=== PATIENT | female | born 1975 | race Hispanic/Latino ===

== ENCOUNTER 2017-07-06 20:05 | Emergency (ER) | payer MEDICAID, OTHER ==
[2017-07-06 21:08] VITALS: BP 142/109
[2017-07-06] MEDS ORDERED: TYLENOL PO ONE (21:13)
[2017-07-06 21:29] LABS: Basophils % (Auto) 1.2 % (0.0-1.8); Hematocrit 38.8 % (30.3-42.9); Hemoglobin 12.9 gm/dl (10.1-14.3); Mean Corpuscular HGB Conc 33 % (30-34); Mean Corpuscular Hemoglobin 29 pg (28-32); Mean Corpuscular Volume 87 fl (79-97); Platelet Count 200 K/mm3 (140-440); Red Blood Count 4.48 M/mm3 (3.65-5.03); White Blood Count 4.6 K/mm3 (4.5-11.0)
[2017-07-06 21:52] LABS: Alanine Aminotransferase 18 units/L (7-56); Albumin 3.9 g/dL (3.9-5); Albumin/Globulin Ratio 1.1 %; Alkaline Phosphatase 63 units/L (35-129); Anion Gap 20 mmol/L; BUN/Creatinine Ratio 14.28; Blood Urea Nitrogen 10 mg/dL (7-17); Calcium 8.5 mg/dL (8.4-10.2); Carbon Dioxide 21 mmol/L (22-30); Chloride 101.6 mmol/L (98-107); Glucose 75 mg/dL (65-100); Potassium 3.5 mmol/L (3.6-5.0); Sodium 139 mmol/L (137-145); Total Protein 7.6 g/dL (6.3-8.2)
--- NOTE | 2017-07-06 22:49 | Ultrasound Report ---
FINAL REPORT EXAM: US PELVIC COMPLETE HISTORY: vag pain and pelvic pain more so in the right lower quadrant. . LMP 06/05/2017 TECHNIQUE: Ultrasound of the pelvis using transabdominal and transvaginal imaging PRIORS: None. FINDINGS: Uterus: Uterus is normal in size, retroflexed in position, and normal and homogeneous in echogenicity. The uterus measures 8.5 x 4.5 x 5.2 cm in size. There is a suggestion of a possible fibroid within the posterior right side of the fundus measuring 2.3 x 2.8 x 2.6 cm. Endometrial stripe: Normal and uniform in thickness measuring 11.7 mm. Ovaries: Both ovaries appear normal in size and echogenicity with normal blood flow bilaterally. The right ovary measures 2.0 x 1.4 x 1.8 cm and the left ovary measures 2.3 x 1.7 x 2.2 cm in size. Arterial and venous blood flow is noted bilaterally. Other: There is no evidence for solid adnexal mass or free fluid in the cul-de-sac seen. IMPRESSION: Suspected fibroid within the posterior right side of the fundus. Otherwise, negative exam.
[2017-07-07 00:29] LABS: Bacteria,Urine 2+ /HPF (Negative); Bilirubin,Urine NEG (Negative); Blood,Urine SM (Negative); Granular Casts,Urine 2 /LPF; Ketones,Urine NEG (Negative); Leukocyte Esterase,Urine MOD (Negative); Mucus,Urine 1+ /HPF; Nitrite,Urine NEG (Negative)
== END 2017-07-07 00:45 | disposition left against medical advice (07) ==
LOC: ED 20:05
DX: R50.9 Fever, unspecified (principal); Z53.21 Procedure and treatment not carried out due to patient leaving prior to being seen by health care provider
CPT/HCPCS: 36415; 76830; 76856; 80053; 81001; 84703; 85025

== ENCOUNTER 2019-07-07 17:30 | Emergency (ER) | payer SELFPAY ==
[2019-07-07 17:48] VITALS: BP 132/92
--- NOTE | 2019-07-07 20:38 | Emergency Department Report ---
ED Rash HPI - HPI Chief Complaint: Skin Rash Stated Complaint: RASH/ARM Time Seen by Provider: 07/07/19 20:32 Duration: 3 Days Location: Upper Extremities Suspected Cause: Unknown Rash Symptoms: Yes Itching, No Facial Swelling, No Tongue/Oral Swelling, No Breathing Difficulties, No Choking Sensation, No Wheezing/Dyspnea, No Peeling, No Blistering, No Lightheaded, No Malaise, No Myalgias Severity: moderate Other History: rash to left fore hand webbing of finger and wrist x 3 days unkown contact consistent with scabies. ED Review of Systems ROS: Stated complaint: RASH/ARM Other details as noted in HPI Constitutional: denies: chills, fever Eyes: denies: eye pain, eye discharge, vision change ENT: denies: ear pain, throat pain Respiratory: denies: cough, shortness of breath, wheezing Cardiovascular: denies: chest pain, palpitations Endocrine: no symptoms reported Gastrointestinal: denies: abdominal pain, nausea, diarrhea Genitourinary: denies: urgency, dysuria, discharge Musculoskeletal: denies: back pain, joint swelling, arthralgia Skin: denies: rash, lesions Neurological: denies: headache, weakness, paresthesias Psychiatric: denies: anxiety, depression Hematological/Lymphatic: denies: easy bleeding, easy bruising ED Past Medical Hx - Past Medical History Hx Hypertension: Yes Additional medical history: CHRONS - Surgical History Additional Surgical History: LEFT KNEE - Social History Smoking Status: Never Smoker Substance Use Type: None - Medications Home Medications: Home Medications Medication Instructions Recorded Confirmed Last Taken Type Dextroamphetamine/Amphetamine 30 mg PO QDAY 07/24/16 07/24/16 Unknown History [Adderall XR 30 mg] Ibuprofen [Motrin] 800 mg PO Q8HR PRN #15 tablet 07/24/16 Unknown Rx Trazodone HCl [Oleptro ER] 150 mg PO QHS 07/24/16 07/24/16 Unknown History clonazePAM [ Klonopin] 0.5 mg PO BID PRN 07/24/16 07/24/16 Unknown History Permethrin 5% [Acticin 5% CREAM] 1 applicatio TP ONCE #1 tube 07/07/19 Unknown Rx Triamcinolone Aceton 0.1% (Nf) 1 applic TP BID #1 tube 07/07/19 Unknown Rx [Kenalog (NF)] diphenhydrAMINE [Benadryl CAP] 25 mg PO Q6HR PRN #30 capsule 07/07/19 Unknown Rx Rash Exam - Exam General: Vital signs noted. No distress. Alert and acting appropriately. HEENT: No Periorbital Edema, No Conjuctival Injection, No Chemosis, No Perioral Edema, No Tongue Edema, No Uvular Edema, No Compromised Airway, No Drooling Lungs: Yes Good Air Exchange (Normal Breath Sounds), No Wheezes, No Ronchi, No Stridor, No Cough, No Labored Respirations, No Retractions, No Use of Accessory Muscles, No Other Abnormal Lung Sounds Heart: Yes Regular, No Murmur Skin: Yes Urticarial Rash, Yes Erythema, Yes Encrustations, No Maculopapular Rash, No Morbilliform rash, No Bulla(e), No Excoriations, No Weeping, No Tenderness, No Edema Other: Positive: Abdomen Normal, Neurologic Normal, Musculoskeletal Normal ED Course Vital Signs 07/07/19 17:47 Temperature 98.4 F Pulse Rate 95 H Respiratory 18 Rate Blood Pressure 132/92 O2 Sat by Pulse 100 Oximetry ED Medical Decision Making - Medical Decision Making this is likely scabies plan permethrin , triamcinolone, benadryl, pt given skin , laundry, matteress, and linen care instructions verbalized understanding of same. Critical care attestation.: If time is entered above; I have spent that time in minutes in the direct care of this critically ill patient, excluding procedure time. ED Disposition Clinical Impression: Scabies exposure Disposition: TO HOME OR SELFCARE Is pt being admited?: No Does the pt Need Aspirin: No Condition: Stable Instructions: Scabies (ED) Prescriptions: Permethrin 5% [Acticin 5% CREAM] 1 applicatio TP ONCE #1 tube diphenhydrAMINE [Benadryl CAP] 25 mg PO Q6HR PRN #30 capsule PRN Reason: Itching Triamcinolone Aceton 0.1% (Nf) [Kenalog (NF)] 1 applic TP BID #1 tube Referrals: NEELA YOO MD [Primary Care Provider] - 3-5 Days Forms: Work/School Release Form(ED) Time of Disposition: 20:43
== END 2019-07-07 20:41 | disposition home or self-care (01) ==
LOC: ED 17:30
DX: Z20.89 Contact with and (suspected) exposure to other communicable diseases (principal); I10 Essential (primary) hypertension; Z79.899 Other long term (current) drug therapy

== ENCOUNTER 2020-02-08 19:17 | Emergency (ER) | payer SELFPAY ==
--- NOTE | 2020-02-08 19:36 | Emergency Department Report ---
Blank Doc - Documentation Documentation: 44-year-old female that presents with dizziness and headache. This initial assessment/diagnostic orders/clinical plan/treatment(s) is/are subject to change based on patient's health status, clinical progression and re- assessment by fellow clinical providers in the ED. Further treatment and workup at subsequent clinical providers discretion. Patient/guardians urged not to elope from the ED as their condition may be serious if not clinically assessed and managed. Initial orders include: 1- Patient sent to [facility] for further evaluation and treatment 2- labs 3- UA
--- NOTE | 2020-02-08 21:01 | Emergency Department Report ---
Chief Complaint: Headache Stated Complaint: DIZZY/HEADACHE Time Seen by Provider: 02/08/20 19:36 - HPI History of Present Illness: CC:" think I have stress and sinus" Mrs. Resendiz is a 44 yo female with hx of TIA who preseents facial headache and sinus congestion for 4 days. Mild in severity. No cough. no blurry vision no trouble with speech. I performed a brief examination. Patient appears well. Patient appears comfortable. No red flags for headache such as sudden onset fever neurological symptoms. I recommended [id number] decongestants. Medical screening exam performed and completed. No evidence of acute emergent condition. - Exam Vital Signs: Vital Signs 02/08/20 19:34 Temperature 97.6 F Pulse Rate 93 H Respiratory 18 Rate Blood Pressure 156/107 O2 Sat by Pulse 99 Oximetry MSE screening note: Focused history and physical exam performed. Due to findings the following was ordered: ED Disposition for MSE Clinical Impression: Sinus headache Disposition: MED SCREENING EXAM-LEFT Condition: Stable Referrals: PILY DOSHI MD [Staff Physician] - 3-5 Days
[2020-02-08 22:24] VITALS: BP 147/98
== END 2020-02-08 21:15 | disposition left against medical advice (07) ==
LOC: ED 19:17
DX: R51 Headache (principal)
CPT/HCPCS: 99282

== ENCOUNTER 2021-03-26 00:53 | Emergency (ER) | payer SELFPAY ==
[2021-03-26 01:08] VITALS: BP 192/117
[2021-03-26 02:01] LABS: Basophils # (Auto) 0.1 K/mm3 (0.0-0.1); Basophils % (Auto) 1.3 % (0.0-1.8); Eosinophils # (Auto) 0.1 K/mm3 (0.0-0.4); Hematocrit 38.3 % (30.3-42.9); Hemoglobin 12.8 gm/dl (10.1-14.3); Lymphocytes # (Auto) 2.4 K/mm3 (1.2-5.4); Lymphocytes % (Auto) 33.3 % (13.4-35.0); Mean Corpuscular HGB Conc 33 % (30-34); Mean Corpuscular Volume 87 fl (79-97); Monocytes # (Auto) 0.5 K/mm3 (0.0-0.8); Monocytes % (Auto) 6.5 % (0.0-7.3); Platelet Count 319 K/mm3 (140-440); Red Cell Distribution Width 14.1 % (13.2-15.2)
[2021-03-26 02:15] LABS: Alanine Aminotransferase 19 units/L (7-56); Albumin 4.2 g/dL (3.9-5); Blood Urea Nitrogen 8 mg/dL (7-17); Calcium 8.9 mg/dL (8.4-10.2); Hemolysis Index 19
[2021-03-26 02:16] LABS: BUN/Creatinine Ratio 16
== END 2021-03-26 05:00 | disposition left against medical advice (07) ==
LOC: ED 00:53
DX: R42 Dizziness and giddiness (principal); Z53.21 Procedure and treatment not carried out due to patient leaving prior to being seen by health care provider
CPT/HCPCS: 36415; 80053; 85025

== ENCOUNTER 2021-10-07 13:56 | Observation (INO) | payer SELFPAY ==
[2021-10-07] MEDS ORDERED: SODIUM CHLORIDE 0.9% 1000 ML 1,000 ML IV ONE ×2 (14:32→17:27)
--- NOTE | 2021-10-07 14:36 | Emergency Department Report ---
<NAHID BRIZUELA - Last Filed: 10/07/21 22:18> ED Chest Pain HPI - General Chief Complaint: Chest Pain Stated Complaint: TOOK SLEEPING PILLS Time Seen by Provider: 10/07/21 14:25 - Related Data Home Medications Medication Instructions Recorded Confirmed Last Taken Dextroamphetamine/Amphetamine 30 mg PO QDAY 07/24/16 10/07/21 Unknown [Adderall XR 30 mg] Trazodone HCl [Oleptro ER] 150 mg PO QHS 07/24/16 10/08/21 10/06/21 20:00 clonazePAM [ Klonopin] 0.5 mg PO BID PRN 07/24/16 10/07/21 Unknown Previous Rx's Medication Instructions Recorded Last Taken Type Ibuprofen [Motrin] 800 mg PO Q8HR PRN #15 tablet 07/24/16 Unknown Rx Permethrin 5% [Acticin 5% CREAM] 1 applicatio TP ONCE #1 tube 07/07/19 Unknown Rx Triamcinolone Aceton 0.1% (Nf) 1 applic TP BID #1 tube 07/07/19 Unknown Rx [Kenalog (NF)] diphenhydrAMINE [Benadryl CAP] 25 mg PO Q6HR PRN #30 capsule 07/07/19 Unknown Rx Allergies Allergy/AdvReac Type Severity Reaction Status Date / Time No Known Allergies Allergy Verified 10/08/21 02:15 ED Past Medical Hx - Medications Home Medications: Home Medications Medication Instructions Recorded Confirmed Last Taken Type Dextroamphetamine/Amphetamine 30 mg PO QDAY 07/24/16 10/07/21 Unknown History [Adderall XR 30 mg] Ibuprofen [Motrin] 800 mg PO Q8HR PRN #15 tablet 07/24/16 10/07/21 Unknown Rx Trazodone HCl [Oleptro ER] 150 mg PO QHS 07/24/16 10/08/21 10/06/21 20:00 History clonazePAM [ Klonopin] 0.5 mg PO BID PRN 07/24/16 10/07/21 Unknown History Permethrin 5% [Acticin 5% CREAM] 1 applicatio TP ONCE #1 tube 07/07/19 10/07/21 Unknown Rx Triamcinolone Aceton 0.1% (Nf) 1 applic TP BID #1 tube 07/07/19 10/07/21 Unknown Rx [Kenalog (NF)] diphenhydrAMINE [Benadryl CAP] 25 mg PO Q6HR PRN #30 capsule 07/07/19 10/07/21 Unknown Rx ED Course - Consultations Consultation #1: 10/07/21 22:18 Case discussed with surgeon Dr. Hernandez-recommends Jed and will evaluate patient in the morning ED Medical Decision Making - Lab Data Result diagrams: 10/07/21 15:56 10/07/21 15:56 - Radiology Data Radiology results: report reviewed (Right upper quadrant ultrasound), image reviewed (Right upper quadrant ultrasound) [facility] [address] [place] [address] Ultrasound Report Signed Patient: STAN SALMERON MR#: [id number] : 1975 Acct:[id number] Age/Sex: 45 / F ADM Date: 10/07/21 Loc: ED Attending Dr: Ordering Physician: RUTHY YANG DO Date of Service: 10/07/21 Procedure(s): US abdomen limited Accession Number(s): [id number] cc: RUTHY YANG DO ULTRASOUND ABDOMEN, LIMITED (RIGHT UPPER QUADRANT) INDICATION: upper abd pain. COMPARISON: None available. FINDINGS: Pancreas: Visualized portion shows no significant abnormality. Liver: Normal in size, measuring 13.5 cm, with normal appearance and normal portal venous flow. Gallbladder: There is cholelithiasis without wall thickening or pericholecystic fluid. Sonographic Tipton's sign: Positive. Bile ducts: No significant abnormality. Common Bile Duct measures 8.7 mm. Free fluid: None. Additional Findings: None. IMPRESSION: Cholelithiasis with a positive sonographic Tipton's sign. Please correlate with the clinical findings to exclude acute cholecystitis. Signer Name: Dejuan Gorman MD Signed: 10/07/2021 9:49 PM Workstation Name: [id number] Transcribed By: [place] Dictated By: Dejuan Gorman MD Electronically Authenticated By: Dejuan Gorman MD Signed Date/Time: 10/07/212148 DD/ 46 TD/TT: Print Cancel ED Disposition Clinical Impression: Medical clearance for psychiatric admission, Overdose, Suicide attempt, Acute cholecystitis Disposition: 09 ADMITTED INPATIENT Is pt being admited?: Yes Does the pt Need Aspirin: No Condition: Fair Time of Disposition: 22:19 (Hospitalist paged (Dr. Reina)) <RUTHY YANG - Last Filed: 10/08/21 16:06> ED Chest Pain HPI - General Source: patient Mode of arrival: Ambulatory Limitations: No Limitations - History of Present Illness Initial Comments: This is a 45-year-old female who presents to the emergency department with initial complaint of developing some midsternal chest discomfort after taking too many Tylenol PM and Goody's powder in an attempt to get some sleep. She says that she took these pills around 5 AM. The patient admits that she just got out of long-term yesterday, after spending 45 days there. The patient later admitted to me that she took about 6 Tylenol PM, 2 Goody's powder, and "a couple of Excedrin" in an attempt to harm/kill herself. The patient denies feeling actively suicidal but says that she was getting accused of restarting using illicit drugs by her daughter after getting out of long-term and this is how she responded to these accusations. She has a past medical history of hypertension and Crohn's disease. She denies any tobacco. She does deny restarting any illicit drugs, or any alcohol abuse/dependence. Heart Score - HEART Score History: Slightly suspicious EKG: Normal Age: 45-65 Risk factors: 1-2 risk factors Troponin: < normal limit HEART Score: 2 - EKG Read Time Time EKG Completed: 14:14 EKG Read Time: 14:18 ED Review of Systems ROS: Stated complaint: TOOK SLEEPING PILLS Other details as noted in HPI Comment: All other systems reviewed and negative Constitutional: denies: chills, fever Eyes: denies: eye pain, vision change ENT: denies: ear pain, throat pain Respiratory: denies: cough, wheezing Cardiovascular: chest pain. denies: edema Gastrointestinal: nausea. denies: vomiting Genitourinary: denies: dysuria, discharge Musculoskeletal: denies: back pain, arthralgia Skin: denies: rash, lesions Neurological: denies: headache, weakness Psychiatric: depression, suicidal thoughts. denies: auditory hallucinations, visual hallucinations ED Past Medical Hx - Past Medical History Hx Hypertension: Yes Hx Headaches / Migraines: Yes Additional medical history: CHRONS - Surgical History Additional Surgical History: LEFT KNEE - Social History Smoking Status: Never Smoker Substance Use Type: Alcohol ED Physical Exam - General Limitations: No Limitations - Other Other exam information: GENERAL: The patient is well-developed well-nourished. HENT: Normocephalic. Atraumatic. Patient has moist mucous membranes. EYES: Extraocular motions are intact. NECK: Supple. Trachea is midline. CHEST/LUNGS: Clear to auscultation. There is no respiratory distress noted. HEART/CARDIOVASCULAR: Regular. There is no tachycardia. There is no murmur. ABDOMEN: Abdomen is soft. Generalized abdominal tenderness to palpation. No guarding. Patient has normal bowel sounds. There is no abdominal distention. SKIN: Skin is warm and dry. NEURO: The patient is awake, alert, and oriented. The patient is cooperative. The patient has no focal neurologic deficits. Normal speech. MUSCULOSKELETAL: There is no tenderness or deformity. There is no limitation range of motion. PSYCH: Patient is tearful with some pressured speech. ED Course Vital Signs 10/07/21 10/07/21 10/07/21 14:01 15:27 15:30 Temperature 98.2 F Pulse Rate 129 H Respiratory 17 Rate Blood Pressure 140/92 131/78 Blood Pressure [Left] O2 Sat by Pulse 96 98 100 Oximetry 10/07/21 10/07/21 10/07/21 16:01 16:30 17:00 Temperature Pulse Rate Respiratory 17 Rate Blood Pressure 132/84 135/77 113/61 Blood Pressure [Left] O2 Sat by Pulse 100 99 99 Oximetry 10/07/21 10/07/21 10/07/21 17:30 18:00 18:51 Temperature Pulse Rate Respiratory Rate Blood Pressure 122/68 117/79 117/79 Blood Pressure [Left] O2 Sat by Pulse 99 95 100 Oximetry 10/07/21 10/07/21 10/07/21 19:00 19:20 19:30 Temperature 98.6 F Pulse Rate 109 H Respiratory 20 Rate Blood Pressure 140/85 148/92 Blood Pressure 140/90 [Left] O2 Sat by Pulse 100 99 97 Oximetry 10/07/21 10/07/21 10/07/21 20:00 20:30 21:00 Temperature Pulse Rate Respiratory Rate Blood Pressure 141/84 146/89 128/75 Blood Pressure [Left] O2 Sat by Pulse 99 79 L 98 Oximetry 10/07/21 10/07/21 10/07/21 21:30 22:00 22:30 Temperature Pulse Rate Respiratory Rate Blood Pressure 113/57 113/77 107/72 Blood Pressure [Left] O2 Sat by Pulse 97 98 98 Oximetry 10/07/21 10/07/21 10/07/21 23:00 23:06 23:11 Temperature Pulse Rate Respiratory Rate Blood Pressure 112/67 107/72 Blood Pressure [Left] O2 Sat by Pulse 98 99 98 Oximetry 10/07/21 10/07/21 10/07/21 23:21 23:33 23:41 Temperature Pulse Rate Respiratory Rate Blood Pressure 107/72 107/72 107/72 Blood Pressure [Left] O2 Sat by Pulse 98 97 98 Oximetry 10/07/21 10/08/21 10/08/21 23:51 00:00 00:11 Temperature Pulse Rate Respiratory Rate Blood Pressure 107/72 130/67 112/67 Blood Pressure [Left] O2 Sat by Pulse 98 98 97 Oximetry 10/08/21 10/08/21 10/08/21 00:21 00:31 00:41 Temperature Pulse Rate Respiratory Rate Blood Pressure 112/67 112/67 112/67 Blood Pressure [Left] O2 Sat by Pulse 97 97 97 Oximetry 10/08/21 00:50 Temperature Pulse Rate Respiratory Rate Blood Pressure 112/67 Blood Pressure [Left] O2 Sat by Pulse 98 Oximetry ABDON score - Abdon Score Age > 65: (0) No Aspirin use within the Past 7 Days: (0) No 3 or more CAD Risk Factors: (0) No 2 or more Angina events in past 24 hrs: (1) Yes Known CAD with more than 50% Stenosis: (0) No Elevated Cardiac Markers: (0) No ST Deviation Greater than 0.5mm: (0) No ABDON Score: 1 ED Medical Decision Making - Lab Data Result diagrams: 10/08/21 05:16 10/08/21 05:16 Lab Results 10/07/21 10/07/21 10/07/21 Range/Units 14:32 15:56 15:56 WBC 16.2 H (4.5-11.0) K/mm3 RBC 4.27 (3.65-5.03) M/mm3 Hgb 12.7 (10.1-14.3) gm/dl Hct 37.7 (30.3-42.9) % MCV 88 (79-97) fl MCH 30 (28-32) pg MCHC 34 (30-34) % RDW 14.9 (13.2-15.2) % Plt Count 254 (140-440) K/mm3 Lymph % (Auto) 11.8 L (13.4-35.0) % [place] % (Auto) 7.3 (0.0-7.3) % Eos % (Auto) 0.3 (0.0-4.3) % Baso % (Auto) 0.4 (0.0-1.8) % Lymph # (Auto) 1.9 (1.2-5.4) K/mm3 [place] # (Auto) 1.2 H (0.0-0.8) K/mm3 Eos # (Auto) 0.1 (0.0-0.4) K/mm3 Baso # (Auto) 0.1 (0.0-0.1) K/mm3 Seg Neutrophils % 80.2 H (40.0-70.0) % Seg Neutrophils # 13.0 H (1.8-7.7) K/mm3 Sodium 136 L (137-145) mmol/L Potassium 3.9 (3.6-5.0) mmol/L Chloride 100.1 (98-107) mmol/L Carbon Dioxide 15 L (22-30) mmol/L Anion Gap 25 mmol/L BUN 12 (7-17) mg/dL Creatinine 0.6 (0.6-1.2) mg/dL Estimated GFR > 60 ml/min BUN/Creatinine Ratio 20 % Glucose 76 (65-100) mg/dL Calcium 9.0 (8.4-10.2) mg/dL Total Bilirubin 1.60 H (0.1-1.2) mg/dL AST 48 H (5-40) units/L ALT 32 (7-56) units/L Alkaline Phosphatase 84 (35-129) units/L Troponin T (0.00-0.029) ng/mL Total Protein 7.5 (6.3-8.2) g/dL Albumin 4.3 (3.9-5) g/dL Albumin/Globulin Ratio 1.3 % Urine Color (Yellow) Urine Turbidity (Clear) Urine pH (5.0-7.0) Ur Specific [place] (1.003-1.030) Urine Protein (Negative) mg/dL Urine Glucose (UA) (Negative) mg/dL Urine Ketones (Negative) mg/dL Urine Blood (Negative) Urine Nitrite (Negative) Urine Bilirubin (Negative) Urine Ictotest (Negative) Urine Urobilinogen (<2.0) mg/dL Ur Leukocyte Esterase (Negative) Urine WBC (Auto) (0.0-6.0) /HPF Urine RBC (Auto) (0.0-6.0) /HPF U Epithel Cells (Auto) (0-13.0) /HPF Urine Mucus /HPF Salicylates 5.1 (2.8-20.0) mg/dL Urine Opiates Screen Urine Methadone Screen Acetaminophen (10.0-30.0) ug/mL Ur Barbiturates Screen Ur Phencyclidine Scrn Ur Amphetamines Screen U Benzodiazepines Scrn Urine Cocaine Screen U Marijuana (THC) Screen Drugs of Abuse Note Plasma/Serum Alcohol (0-0.07) % 10/07/21 10/07/21 10/07/21 Range/Units 15:56 15:56 16:30 WBC (4.5-11.0) K/mm3 RBC (3.65-5.03) M/mm3 Hgb (10.1-14.3) gm/dl Hct (30.3-42.9) % MCV (79-97) fl MCH (28-32) pg MCHC (30-34) % RDW (13.2-15.2) % Plt Count (140-440) K/mm3 Lymph % (Auto) (13.4-35.0) % [place] % (Auto) (0.0-7.3) % Eos % (Auto) (0.0-4.3) % Baso % (Auto) (0.0-1.8) % Lymph # (Auto) (1.2-5.4) K/mm3 [place] # (Auto) (0.0-0.8) K/mm3 Eos # (Auto) (0.0-0.4) K/mm3 Baso # (Auto) (0.0-0.1) K/mm3 Seg Neutrophils % (40.0-70.0) % Seg Neutrophils # (1.8-7.7) K/mm3 Sodium (137-145) mmol/L Potassium (3.6-5.0) mmol/L Chloride (98-107) mmol/L Carbon Dioxide (22-30) mmol/L Anion Gap mmol/L BUN (7-17) mg/dL Creatinine (0.6-1.2) mg/dL Estimated GFR ml/min BUN/Creatinine Ratio % Glucose (65-100) mg/dL Calcium (8.4-10.2) mg/dL Total Bilirubin (0.1-1.2) mg/dL AST (5-40) units/L ALT (7-56) units/L Alkaline Phosphatase (35-129) units/L Troponin T (0.00-0.029) ng/mL Total Protein (6.3-8.2) g/dL Albumin (3.9-5) g/dL Albumin/Globulin Ratio % Urine Color Alexus (Yellow) Urine Turbidity Clear (Clear) Urine pH 5.0 (5.0-7.0) Ur Specific [place] 1.033 H (1.003-1.030) Urine Protein 100 mg/dl (Negative) mg/dL Urine Glucose (UA) Neg (Negative) mg/dL Urine Ketones 80 (Negative) mg/dL Urine Blood Mod (Negative) Urine Nitrite Neg (Negative) Urine Bilirubin Sm (Negative) Urine Ictotest Negative (Negative) Urine Urobilinogen 2.0 (<2.0) mg/dL Ur Leukocyte Esterase Sm (Negative) Urine WBC (Auto) 5.0 (0.0-6.0) /HPF Urine RBC (Auto) 8.0 (0.0-6.0) /HPF U Epithel Cells (Auto) 5.0 (0-13.0) /HPF Urine Mucus Few /HPF Salicylates (2.8-20.0) mg/dL Urine Opiates Screen Urine Methadone Screen Acetaminophen 5.0 L (10.0-30.0) ug/mL Ur Barbiturates Screen Ur Phencyclidine Scrn Ur Amphetamines Screen U Benzodiazepines Scrn Urine Cocaine Screen U Marijuana (THC) Screen Drugs of Abuse Note Plasma/Serum Alcohol < 0.01 (0-0.07) % 10/07/21 10/07/21 Range/Units 16:30 18:11 WBC (4.5-11.0) K/mm3 RBC (3.65-5.03) M/mm3 Hgb (10.1-14.3) gm/dl Hct (30.3-42.9) % MCV (79-97) fl MCH (28-32) pg MCHC (30-34) % RDW (13.2-15.2) % Plt Count (140-440) K/mm3 Lymph % (Auto) (13.4-35.0) % [place] % (Auto) (0.0-7.3) % Eos % (Auto) (0.0-4.3) % Baso % (Auto) (0.0-1.8) % Lymph # (Auto) (1.2-5.4) K/mm3 [place] # (Auto) (0.0-0.8) K/mm3 Eos # (Auto) (0.0-0.4) K/mm3 Baso # (Auto) (0.0-0.1) K/mm3 Seg Neutrophils % (40.0-70.0) % Seg Neutrophils # (1.8-7.7) K/mm3 Sodium (137-145) mmol/L Potassium (3.6-5.0) mmol/L Chloride (98-107) mmol/L Carbon Dioxide (22-30) mmol/L Anion Gap mmol/L BUN (7-17) mg/dL Creatinine (0.6-1.2) mg/dL Estimated GFR ml/min BUN/Creatinine Ratio % Glucose (65-100) mg/dL Calcium (8.4-10.2) mg/dL Total Bilirubin (0.1-1.2) mg/dL AST (5-40) units/L ALT (7-56) units/L Alkaline Phosphatase (35-129) units/L Troponin T < 0.010 (0.00-0.029) ng/mL Total Protein (6.3-8.2) g/dL Albumin (3.9-5) g/dL Albumin/Globulin Ratio % Urine Color (Yellow) Urine Turbidity (Clear) Urine pH (5.0-7.0) Ur Specific [place] (1.003-1.030) Urine Protein (Negative) mg/dL Urine Glucose (UA) (Negative) mg/dL Urine Ketones (Negative) mg/dL Urine Blood (Negative) Urine Nitrite (Negative) Urine Bilirubin (Negative) Urine Ictotest (Negative) Urine Urobilinogen (<2.0) mg/dL Ur Leukocyte Esterase (Negative) Urine WBC (Auto) (0.0-6.0) /HPF Urine RBC (Auto) (0.0-6.0) /HPF U Epithel Cells (Auto) (0-13.0) /HPF Urine Mucus /HPF Salicylates (2.8-20.0) mg/dL Urine Opiates Screen Negative Urine Methadone Screen Negative Acetaminophen (10.0-30.0) ug/mL Ur Barbiturates Screen Negative Ur Phencyclidine Scrn Negative Ur Amphetamines Screen Positive U Benzodiazepines Scrn Negative Urine Cocaine Screen Negative U Marijuana (THC) Screen Negative Drugs of Abuse Note Disclamer Plasma/Serum Alcohol (0-0.07) % - EKG Data -: EKG Interpreted by Me EKG shows normal: sinus rhythm, axis, intervals, QRS complexes, ST-T waves Rate: tachycardia (105 bpm) - EKG Data When compared to previous EKG there are: previous EKG unavailable Interpretation: normal EKG (With mild tachycardia) - Radiology Data Radiology results: image reviewed interpreted by me: Chest x-ray does not show any acute process. There are no pleural effusions, obvious pneumonia and there is no pneumothorax. No widened mediastinum. - Medical Decision Making This patient presents to the emergency department with a complaint of some chest and abdominal pain that began after ingesting multiple [id number] medications. Initially she says that she was doing so to try and get some sleep, but quickly admitted that she took these medications as a suicide attempt after being accused of using illicit drugs by her daughter. For this reason the patient was placed on a 1013. She was later seen by the psychiatric location and measurement technician who agrees with the plan for a 1013 and inpatient stabilization. The patient had an EKG that did not show any evidence of ST elevation myocardial infarction or any arrhythmia. Chest x-ray does not show any pneumonia, pleural effusions, pneumothorax, widened mediastinum, or any other acute process. Labs thus far have been mostly unremarkable including CBC, metabolic panel, negative troponin, negative blood alcohol level, urinalysis. There is a slight elevation in the total bilirubin at 1.6. UDS positive for amphetamines but the patient denies using methamphetamines and says that she takes Adderall. The patient's Tylenol and salicylate levels are essentially negative and certainly are not at a toxic level for ingestion, if she took them at all. Because of the abdominal discomfort and the elevated bilirubin level, the patient will have an ultrasound to rule out cholecystitis and attempt to medi kayla clear her for psychiatric placement. She also has a second troponin ordered. If the ultrasound does not show any surgical or medical emergency, and the second troponin is negative, then I feel the patient can be medically cleared for psychiatric placement. She is low on the heart and ABDON score. The patient is seen resting comfortably multiple times throughout her ED course and does not appear to have any current chest pain. Critical Care Time: No Critical care attestation.: If time is entered above; I have spent that time in minutes in the direct care of this critically ill patient, excluding procedure time. ED Disposition Is pt being admited?: Yes
--- NOTE | 2021-10-07 15:28 | XRay Report ---
CHEST 1 VIEW 10/07/2021 2:18 PM INDICATION / CLINICAL INFORMATION: Chest pain. COMPARISON: None available. FINDINGS: SUPPORT DEVICES: None. HEART / MEDIASTINUM: No significant abnormality. LUNGS / PLEURA: No significant pulmonary abnormality. No significant pleural effusion. No pneumothora x. ADDITIONAL FINDINGS: No significant additional findings. IMPRESSION: 1. No acute abnormality of the chest. Signer Name: Dejuan Gorman MD Signed: 10/07/2021 3:23 PM Workstation Name: [id number]
[2021-10-07 16:15] LABS: Basophils # (Auto) 0.1 K/mm3 (0.0-0.1); Basophils % (Auto) 0.4 % (0.0-1.8); Eosinophils # (Auto) 0.1 K/mm3 (0.0-0.4); Eosinophils % (Auto) 0.3 % (0.0-4.3); Hematocrit 37.7 % (30.3-42.9); Hemoglobin 12.7 gm/dl (10.1-14.3); Lymphocytes # (Auto) 1.9 K/mm3 (1.2-5.4); Lymphocytes % (Auto) 11.8 % (13.4-35.0); Mean Corpuscular HGB Conc 34 % (30-34); Mean Corpuscular Volume 88 fl (79-97); Monocytes # (Auto) 1.2 K/mm3 (0.0-0.8); Monocytes % (Auto) 7.3 % (0.0-7.3); Red Blood Count 4.27 M/mm3 (3.65-5.03); Red Cell Distribution Width 14.9 % (13.2-15.2)
[2021-10-07 16:24] LABS: Platelet Count 254 K/mm3 (140-440)
[2021-10-07 17:06] LABS: Benzodiazepines Screen,Urine Negative; Cannabinoid Screen,Urine Negative; Cocaine Screen,Urine Negative; Methadone Screen,Urine Negative; Opiate Screen,Urine Negative
[2021-10-07 17:11] LABS: Bilirubin,Urine SM (Negative); Blood,Urine MOD (Negative); Color,Urine Amber (Yellow); Mucus,Urine FEW /HPF
[2021-10-07 17:14] LABS: Alanine Aminotransferase 32 units/L (7-56); Albumin 4.3 g/dL (3.9-5); Blood Urea Nitrogen 12 mg/dL (7-17); Hemolysis Index 67
[2021-10-07 17:15] LABS: BUN/Creatinine Ratio 20
[2021-10-07 17:19] LABS: Ictotest,Urine Negative (Negative)
[2021-10-07 17:20] LABS: Amphetamine Screen,Urine Positive
--- NOTE | 2021-10-07 21:53 | Ultrasound Report ---
ULTRASOUND ABDOMEN, LIMITED (RIGHT UPPER QUADRANT) INDICATION: upper abd pain. COMPARISON: None available. FINDINGS: Pancreas: Visualized portion shows no significant abnormality. Liver: Normal in size, measuring 13.5 cm, with normal appearance and normal portal venous flow. Gallbladder: There is cholelithiasis without wall thickening or pericholecystic fluid. Sonographic M urphy's sign: Positive. Bile ducts: No significant abnormality. Common Bile Duct measures 8.7 mm. Free fluid: None. Additional Findings: None. IMPRESSION: Cholelithiasis with a positive sonographic Tipton's sign. Please correlate with the clinical findings to exclude acute cholecystitis. Signer Name: Dejuan Gorman MD Signed: 10/07/2021 9:49 PM Workstation Name: [id number]
[2021-10-07] MEDS ORDERED: IBUPROFEN 600 MG TAB PO PRN (22:30)
[2021-10-07] MEDS ORDERED: ALBUTEROL 2.5 MG/3 ML NEBU IH PRN (22:30)
[2021-10-07] MEDS ORDERED: HYDROmorphone 1 MG/1 ML INJ IV PRN (22:30)
[2021-10-07] MEDS ORDERED: ONDANSETRON 4 MG/2 ML INJ IV PRN (22:30)
[2021-10-07] MEDS ORDERED: clonazePAM 0.5 MG TAB PO PRN (22:35)
--- NOTE | 2021-10-07 22:41 | History and Physical Report ---
History of Present Illness Date of examination: 10/07/21 Date of admission: 10/07/21 Chief complaint: Chest pain Right upper quadrant pain History of present illness: 45-year-old with past medical history of hypertension, Crohn's disease, amphetamine abuse was brought to the emergency room because of developing some midsternal chest discomfort after taking too many Tylenol PM and Goody's powder in an attempt to get some sleep. She says that she took these pills around 5 AM. The patient admits that she just got out of correction yesterday, after spending 45 days there. The patient later admitted to me that she took about 6 Tylenol PM, 2 Goody's powder, and "a couple of Excedrin" in an attempt to harm/kill herself. The patient denies feeling actively suicidal but says that she was getting accused of restarting using illicit drugs by her daughter after getting out of correction and this is how she responded to these accusations. She does deny restarting any illicit drugs, or any alcohol abuse/dependence. Because of the abdominal discomfort and the elevated bilirubin level, the patient will have an ultrasound to rule out cholecystitis and attempt to medica lly clear her for psychiatric placement. Second troponin is negative but ultrasound more of the right upper quadrant showed cholelithiasis with a positive sonographic Tipton's sign. Please correlate with the clinical findings to exclude acute cholecystitis. Subsequently Case was discussed with surgeon who recommended to admit the patient and put the patient on Levaquin , surgeon will see the patient in the morning Med rec is done Past History Past Medical History: hypertension, other (Crohn's disease, amphetamine abuse) Medications and Allergies Allergies Allergy/AdvReac Type Severity Reaction Status Date / Time No Known Allergies Allergy Verified 07/24/16 15:50 Home Medications Medication Instructions Recorded Confirmed Last Taken Type Dextroamphetamine/Amphetamine 30 mg PO QDAY 07/24/16 07/24/16 Unknown History [Adderall XR 30 mg] Ibuprofen [Motrin] 800 mg PO Q8HR PRN #15 tablet 07/24/16 Unknown Rx Trazodone HCl [Oleptro ER] 150 mg PO QHS 07/24/16 07/24/16 Unknown History clonazePAM [ Klonopin] 0.5 mg PO BID PRN 07/24/16 07/24/16 Unknown History Permethrin 5% [Acticin 5% CREAM] 1 applicatio TP ONCE #1 tube 07/07/19 Unknown Rx Triamcinolone Aceton 0.1% (Nf) 1 applic TP BID #1 tube 07/07/19 Unknown Rx [Kenalog (NF)] diphenhydrAMINE [Benadryl CAP] 25 mg PO Q6HR PRN #30 capsule 07/07/19 Unknown Rx Active Meds: Active Medications Albuterol (Albuterol 2.5 Mg/3 Ml Nebu) 2.5 mg IH Q4HRT PRN PRN Reason: Shortness Of Breath Albuterol/Ipratropium (Ipratropium/Albuterol Sulfate 3 Ml Ampul.Neb) 1 ampul IH Q6HRT [facility] Clonazepam (Clonazepam 0.5 Mg Tab) 0.5 mg PO BID PRN PRN Reason: Anxiety Famotidine (Famotidine 20 Mg/2 Ml Inj) 20 mg IV BID [facility]IE Heparin Sodium (Porcine) (Heparin 5,000 Unit/1 Ml Vial) 5,000 unit SUB-Q Q8HR [facility] Hydromorphone HCl (Hydromorphone 1 Mg/1 Ml Inj) 0.5 mg IV Q3H PRN PRN Reason: Pain , Severe (7-10) Levofloxacin/Dextrose (Levaquin 500mg/100ml) 500 mg in 100 mls @ 100 mls/hr IV ONCE ONE; Protocol Stop: 10/07/21 23:16 Last Admin: 10/07/21 22:31 Dose: 100 mls/hr Documented by: Dextrose/Sodium Chloride (D5/0.45ns) 1,000 mls @ 125 mls/hr IV DIRECT [facility]IE Levofloxacin/Dextrose (Levaquin 750mg/150ml) 750 mg in 150 mls @ 100 mls/hr IV Q24H [facility]; Protocol Ibuprofen (Ibuprofen 600 Mg Tab) 600 mg PO Q6H PRN PRN Reason: Pain, Mild (1-3) Miscellaneous Medication (Trazodone Hcl [Oleptro Er]) 150 mg PO QHS [facility] Miscellaneous Medication (Triamcinolone Aceton 0.1% (Nf)) 1 applic TP BID [facility] Miscellaneous Medication (Dextroamphetamine/Amphetamine [Adderall Xr 30 Mg]) 30 mg PO QDAY [facility] Morphine Sulfate (Morphine 2 Mg/1 Ml Inj) 2 mg IV Q4H PRN PRN Reason: Pain, Moderate (4-6) Ondansetron HCl (Ondansetron 4 Mg/2 Ml Inj) 4 mg IV Q8H PRN PRN Reason: Nausea And Vomiting Permethrin (Permethrin 5% Cream 60 Gm) 1 applic TP ONCE [facility] Sodium Chloride (Sodium Chloride 0.9% 10 Ml Flush Syringe) 10 ml IV BID [facility] Sodium Chloride (Sodium Chloride 0.9% 10 Ml Flush Syringe) 10 ml IV PRN PRN PRN Reason: LINE FLUSH Review of Systems All systems: negative Cardiovascular: chest pain Gastrointestinal: abdominal pain, nausea Exam - Constitutional Vitals: Temp Pulse Resp BP Pulse Ox 98.6 F 109 H 20 113/57 97 10/07/21 19:20 10/07/21 19:20 10/07/21 19:20 10/07/21 21:30 10/07/21 21:30 General appearance: Present: no acute distress, well-nourished - EENT Eyes: Present: PERRL ENT: hearing intact, clear oral mucosa - Neck Neck: Present: supple, normal ROM - Respiratory Respiratory effort: normal Respiratory: bilateral: CTA - Cardiovascular Heart Sounds: Present: S1 & S2. Absent: rub, click - Extremities Extremities: pulses symmetrical, No edema Peripheral Pulses: within normal limits - Abdominal General gastrointestinal: Present: soft, tender, non-distended, normal bowel sounds Female genitourinary: Present: normal - Integumentary Integumentary: Present: clear, warm, dry - Musculoskeletal Musculoskeletal: gait normal, strength equal bilaterally - Psychiatric Psychiatric: appropriate mood/affect, intact judgment & insight - Neurologic Neurologic: CNII-XII intact, moves all extremities HEART Score - HEART Score EKG: Normal Age: 45-65 Risk factors: 1-2 risk factors Troponin: Troponin T < 0.010 ng/mL (0.00-0.029) 10/07/21 20:04 Troponin: < normal limit Results - Labs CBC & Chem 7: 10/07/21 15:56 10/07/21 15:56 Labs: Laboratory Last Values WBC 16.2 K/mm3 (4.5-11.0) H 10/07/21 15:56 RBC 4.27 M/mm3 (3.65-5.03) 10/07/21 15:56 Hgb 12.7 gm/dl (10.1-14.3) 10/07/21 15:56 Hct 37.7 % (30.3-42.9) 10/07/21 15:56 MCV 88 fl (79-97) 10/07/21 15:56 MCH 30 pg (28-32) 10/07/21 15:56 MCHC 34 % (30-34) 10/07/21 15:56 RDW 14.9 % (13.2-15.2) 10/07/21 15:56 Plt Count 254 K/mm3 (140-440) 10/07/21 15:56 Lymph % (Auto) 11.8 % (13.4-35.0) L 10/07/21 15:56 [place] % (Auto) 7.3 % (0.0-7.3) 10/07/21 15:56 Eos % (Auto) 0.3 % (0.0-4.3) 10/07/21 15:56 Baso % (Auto) 0.4 % (0.0-1.8) 10/07/21 15:56 Lymph # (Auto) 1.9 K/mm3 (1.2-5.4) 10/07/21 15:56 [place] # (Auto) 1.2 K/mm3 (0.0-0.8) H 10/07/21 15:56 Eos # (Auto) 0.1 K/mm3 (0.0-0.4) 10/07/21 15:56 Baso # (Auto) 0.1 K/mm3 (0.0-0.1) 10/07/21 15:56 Seg Neutrophils % 80.2 % (40.0-70.0) H 10/07/21 15:56 Seg Neutrophils # 13.0 K/mm3 (1.8-7.7) H 10/07/21 15:56 Sodium 136 mmol/L (137-145) L 10/07/21 15:56 Potassium 3.9 mmol/L (3.6-5.0) 10/07/21 15:56 Chloride 100.1 mmol/L (98-107) 10/07/21 15:56 Carbon Dioxide 15 mmol/L (22-30) L 10/07/21 15:56 Anion Gap 25 mmol/L 10/07/21 15:56 BUN 12 mg/dL (7-17) 10/07/21 15:56 Creatinine 0.6 mg/dL (0.6-1.2) 10/07/21 15:56 Estimated GFR > 60 ml/min 10/07/21 15:56 BUN/Creatinine Ratio 20 % 10/07/21 15:56 Glucose 76 mg/dL (65-100) 10/07/21 15:56 Calcium 9.0 mg/dL (8.4-10.2) 10/07/21 15:56 Total Bilirubin 1.60 mg/dL (0.1-1.2) H 10/07/21 15:56 AST 48 units/L (5-40) H 10/07/21 15:56 ALT 32 units/L (7-56) 10/07/21 15:56 Alkaline Phosphatase 84 units/L (35-129) 10/07/21 15:56 Troponin T < 0.010 ng/mL (0.00-0.029) 10/07/21 20:04 Total Protein 7.5 g/dL (6.3-8.2) 10/07/21 15:56 Albumin 4.3 g/dL (3.9-5) 10/07/21 15:56 Albumin/Globulin Ratio 1.3 % 10/07/21 15:56 Urine Color Alexus (Yellow) 10/07/21 16:30 Urine Turbidity Clear (Clear) 10/07/21 16:30 Urine pH 5.0 (5.0-7.0) 10/07/21 16:30 Ur Specific [place] 1.033 (1.003-1.030) H 10/07/21 16:30 Urine Protein 100 mg/dl mg/dL (Negative) 10/07/21 16:30 Urine Glucose (UA) Neg mg/dL (Negative) 10/07/21 16:30 Urine Ketones 80 mg/dL (Negative) 10/07/21 16:30 Urine Blood Mod (Negative) 10/07/21 16:30 Urine Nitrite Neg (Negative) 10/07/21 16:30 Urine Bilirubin Sm (Negative) 10/07/21 16:30 Urine Ictotest Negative (Negative) 10/07/21 16:30 Urine Urobilinogen 2.0 mg/dL (<2.0) 10/07/21 16:30 Ur Leukocyte Esterase Sm (Negative) 10/07/21 16:30 Urine WBC (Auto) 5.0 /HPF (0.0-6.0) 10/07/21 16:30 Urine RBC (Auto) 8.0 /HPF (0.0-6.0) 10/07/21 16:30 U Epithel Cells (Auto) 5.0 /HPF (0-13.0) 10/07/21 16:30 Urine Mucus Few /HPF 10/07/21 16:30 Salicylates 5.1 mg/dL (2.8-20.0) 10/07/21 14:32 Urine Opiates Screen Negative 10/07/21 16:30 Urine Methadone Screen Negative 10/07/21 16:30 Acetaminophen 5.0 ug/mL (10.0-30.0) L 10/07/21 15:56 Ur Barbiturates Screen Negative 10/07/21 16:30 Ur Phencyclidine Scrn Negative 10/07/21 16:30 Ur Amphetamines Screen Positive 10/07/21 16:30 U Benzodiazepines Scrn Negative 10/07/21 16:30 Urine Cocaine Screen Negative 10/07/21 16:30 U Marijuana (THC) Screen Negative 10/07/21 16:30 Drugs of Abuse Note Disclamer 10/07/21 16:30 Plasma/Serum Alcohol < 0.01 % (0-0.07) 10/07/21 15:56 - Imaging and Cardiology Chest x-ray: report reviewed US - abdomen: report reviewed Assessment and Plan VTE prophylaxis?: Chemical Plan of care discussed with patient/family: Yes - Patient Problems (1) Acute cholecystitis Current Visit: Yes Status: Acute Plan to address problem: Admit the patient to the medical floor. NPO. D5 half-normal saline at the rate of 125 cc/h. Pepcid 20 mg IV every 12 hours. Levaquin 750 IV daily. Will co nsult surgeon for evaluation. Recheck CBC CMP in the morning (2) Medical clearance for psychiatric admission Current Visit: Yes Status: Acute Plan to address problem: Patient denied any suicidal ideation. We will put the patient on nothing by mouth. IV fluid D5 half-normal saline at the rate of 125 cc/h. We will consult psych for evaluation (3) Overdose Current Visit: Yes Status: Acute Plan to address problem: Acetaminophen level is low. Patient denied any suicidal ideation. We will put the patient on nothing by mouth. IV fluid D5 half-normal saline at the rate of 125 cc/h. Pepcid 20 mg IV every 12 hours. Zofran 4 mg IV every 6 hours as needed. We will consult psych for evaluation (4) Hypertension Current Visit: Yes Status: Acute Plan to address problem: We will continue the home medication. We will monitor the blood pressure closely (5) Suicide attempt Current Visit: Yes Status: Acute Plan to address problem: Patient denied any suicidal ideation. We will put the patient on nothing by mouth. IV fluid D5 half-normal saline at the rate of 125 cc/h. Pepcid 20 mg IV every 12 hours. Zofran 4 mg IV every 6 hours as needed. We will consult psych for evaluation (6) DVT prophylaxis Current Visit: Yes Status: Acute Plan to address problem: Heparin 5000 units subcu every 8 hours for DVT prophylaxis. Pepcid 20 mg IV every 12 hours for GI prophylaxis. Patient is a full code
[2021-10-07] MEDS ORDERED: PERMETHRIN 5% CREAM 60 GM TP SCH (23:00)
[2021-10-08] MEDS: D5W/0.45% NACL 1,000 ML IV SCH ×2 (01:52→22:15)
[2021-10-08] MEDS: HEPARIN 5,000 UNIT/1 ML VIAL SUB-Q SCH ×3 (05:35→21:58)
[2021-10-08 05:47] LABS: Basophils % (Auto) 0.6 % (0.0-1.8); Eosinophils # (Auto) 0.2 K/mm3 (0.0-0.4); Eosinophils % (Auto) 2.3 % (0.0-4.3); Hematocrit 34.1 % (30.3-42.9); Hemoglobin 11.3 gm/dl (10.1-14.3); Lymphocytes # (Auto) 1.7 K/mm3 (1.2-5.4); Lymphocytes % (Auto) 22.5 % (13.4-35.0); Mean Corpuscular HGB Conc 33 % (30-34); Mean Corpuscular Volume 90 fl (79-97); Monocytes # (Auto) 0.7 K/mm3 (0.0-0.8); Monocytes % (Auto) 8.7 % (0.0-7.3); Platelet Count 225 K/mm3 (140-440); Red Blood Count 3.81 M/mm3 (3.65-5.03); Red Cell Distribution Width 15.2 % (13.2-15.2)
[2021-10-08 06:08] LABS: Alanine Aminotransferase 24 units/L (7-56); Albumin 3.5 g/dL (3.9-5); Blood Urea Nitrogen 8 mg/dL (7-17); Calcium 7.8 mg/dL (8.4-10.2); Hemolysis Index 12
[2021-10-08 06:11] LABS: BUN/Creatinine Ratio 16
[2021-10-08] MEDS: IPRATROPIUM/ALBUTEROL SULFATE 3 ML AMPUL.NEB IH SCH ×4 (07:59→20:21)
[2021-10-08] MEDS ORDERED: POTASSIUM CHLORIDE ER 20 MEQ TAB PO NR (08:00)
[2021-10-08] MEDS ORDERED: TRIAMCINOLONE ACETON 0.1% TP SCH (10:00)
[2021-10-08] MEDS ORDERED: DEXTROAMPHETAMINE PO SCH (10:00)
[2021-10-08] MEDS ORDERED: AMPHETAMINE PO SCH (10:00)
[2021-10-08] MEDS: FAMOTIDINE 20 MG/2 ML INJ IV SCH ×2 (10:18→21:58)
--- NOTE | 2021-10-08 10:40 | Consultation ---
History of Present Illness Consult date: 10/08/21 Reason for consult: gallstones - History of present illness History of present illness: 45-year-old female admitted to the emergency room with suicidal ideations after taking some proclaim large quantities of Tylenol and Goody powder. Patient says that she has also been having right upper quadrant pain for several months and was recently incarcerated and just released 2 days ago. She has been having intermittent right upper quadrant pain off and on that is currently active. She says the pain is currently 7-8 out of 10. She denies any active nausea vomiting. Patient had an ultrasound that showed cholelithiasis with possible positive Tipton sign the common bile duct measuring 8.4 mm. Past History Past Medical History: hypertension, other (Crohn's disease, amphetamine abuse) Past Surgical History: Other (Right ankle surgery) Social history: denies: smoking, alcohol abuse Medications and Allergies Allergies Allergy/AdvReac Type Severity Reaction Status Date / Time No Known Allergies Allergy Verified 10/08/21 02:15 Home Medications Medication Instructions Recorded Confirmed Last Taken Type Dextroamphetamine/Amphetamine 30 mg PO QDAY 07/24/16 10/07/21 Unknown History [Adderall XR 30 mg] Ibuprofen [Motrin] 800 mg PO Q8HR PRN #15 tablet 07/24/16 10/07/21 Unknown Rx Trazodone HCl [Oleptro ER] 150 mg PO QHS 07/24/16 10/08/21 10/06/21 20:00 History clonazePAM [ Klonopin] 0.5 mg PO BID PRN 07/24/16 10/07/21 Unknown History Permethrin 5% [Acticin 5% CREAM] 1 applicatio TP ONCE #1 tube 07/07/19 10/07/21 Unknown Rx Triamcinolone Aceton 0.1% (Nf) 1 applic TP BID #1 tube 07/07/19 10/07/21 Unknown Rx [Kenalog (NF)] diphenhydrAMINE [Benadryl CAP] 25 mg PO Q6HR PRN #30 capsule 07/07/19 10/07/21 Unknown Rx Active Meds: Active Medications Albuterol (Albuterol 2.5 Mg/3 Ml Nebu) 2.5 mg IH Q4HRT PRN PRN Reason: Shortness Of Breath Albuterol/Ipratropium (Ipratropium/Albuterol Sulfate 3 Ml Ampul.Neb) 1 ampul IH Q6HRT [facility] Last Admin: 10/08/21 07:59 Dose: 1 ampul Documented by: Clonazepam (Clonazepam 0.5 Mg Tab) 0.5 mg PO BID PRN PRN Reason: Anxiety Famotidine (Famotidine 20 Mg/2 Ml Inj) 20 mg IV BID [facility] Last Admin: 10/08/21 10:18 Dose: 20 mg Documented by: Heparin Sodium (Porcine) (Heparin 5,000 Unit/1 Ml Vial) 5,000 unit SUB-Q Q8HR [facility] Last Admin: 10/08/21 05:35 Dose: Not Given Documented by: Hydromorphone HCl (Hydromorphone 1 Mg/1 Ml Inj) 0.5 mg IV Q3H PRN PRN Reason: Pain , Severe (7-10) Dextrose/Sodium Chloride (D5/0.45ns) 1,000 mls @ 75 mls/hr IV DIRECT [facility] Last Admin: 10/08/21 01:52 Dose: 125 mls/hr Documented by: Levofloxacin/Dextrose (Levaquin 750mg/150ml) 750 mg in 150 mls @ 100 mls/hr IV Q24H [facility]; Protocol Potassium Chloride (Kcl 10meq/100ml) 10 meq in 100 mls @ 100 mls/hr IV Q1HR [facility] Stop: 10/08/21 10:59 Ibuprofen (Ibuprofen 600 Mg Tab) 600 mg PO Q6H PRN PRN Reason: Pain, Mild (1-3) Miscellaneous Medication (Dextroamphetamine/Amphetamine [Adderall Xr 30 Mg]) 30 mg PO QDAY [facility] Morphine Sulfate (Morphine 2 Mg/1 Ml Inj) 2 mg IV Q4H PRN PRN Reason: Pain, Moderate (4-6) Ondansetron HCl (Ondansetron 4 Mg/2 Ml Inj) 4 mg IV Q8H PRN PRN Reason: Nausea And Vomiting Sodium Chloride (Sodium Chloride 0.9% 10 Ml Flush Syringe) 10 ml IV BID [facility] Last Admin: 10/08/21 10:19 Dose: 10 ml Documented by: Sodium Chloride (Sodium Chloride 0.9% 10 Ml Flush Syringe) 10 ml IV PRN PRN PRN Reason: LINE FLUSH Trazodone HCl (Trazodone 50 Mg Tab) 150 mg PO QHS [facility] Triamcinolone Acetonide (Triamcinolone 0.1% Cream 15 Gm) 1 applic TP BID [facility] Review of Systems All systems: negative - Constitutional no weight loss, no weight gain, no fever, no chills, no poor appetite - Gastrointestinal abdominal pain, no nausea, no vomiting, no jaundice Exam Vital Signs Temp Pulse Resp BP Pulse Ox 98.2 F 129 H 17 140/92 96 10/07/21 14:01 10/07/21 14:01 10/07/21 14:01 10/07/21 14:01 10/07/21 14:01 - General physical appearance Positive: well developed, no distress, moderate pain, obese - Eyes Positive: PERRL. Negative: icteric - ENT Positive: no hearing loss - Respiratory Positive: normal expansion, normal respiratory effort - Cardiovascular Heart Sounds: Present: S1 & S2 - Extremities Extremities: no ischemia - Abdomen Abdomen: Present: soft, other (Tender to palpation in the right upper quadrant). Absent: distended, rebound, guarding, rigid - Neurologic Neurologic: alert and oriented to time, place and person - Psychiatric Psychiatric: appropriate mood/affect, cooperative Results - Labs 10/08/21 05:16 10/08/21 05:16 Abnormal lab results 10/07/21 10/07/21 10/07/21 Range/Units 15:56 15:56 15:56 WBC 16.2 H (4.5-11.0) K/mm3 Lymph % (Auto) 11.8 L (13.4-35.0) % [place] % (Auto) (0.0-7.3) % [place] # (Auto) 1.2 H (0.0-0.8) K/mm3 Seg Neutrophils % 80.2 H (40.0-70.0) % Seg Neutrophils # 13.0 H (1.8-7.7) K/mm3 Sodium 136 L (137-145) mmol/L Potassium (3.6-5.0) mmol/L Carbon Dioxide 15 L (22-30) mmol/L Creatinine (0.6-1.2) mg/dL Glucose (65-100) mg/dL Calcium (8.4-10.2) mg/dL Total Bilirubin 1.60 H (0.1-1.2) mg/dL AST 48 H (5-40) units/L Albumin (3.9-5) g/dL Ur Specific [place] (1.003-1.030) Acetaminophen 5.0 L (10.0-30.0) ug/mL 10/07/21 10/08/21 10/08/21 Range/Units 16:30 05:16 05:16 WBC (4.5-11.0) K/mm3 Lymph % (Auto) (13.4-35.0) % [place] % (Auto) 8.7 H (0.0-7.3) % [place] # (Auto) (0.0-0.8) K/mm3 Seg Neutrophils % (40.0-70.0) % Seg Neutrophils # (1.8-7.7) K/mm3 Sodium (137-145) mmol/L Potassium 3.4 L (3.6-5.0) mmol/L Carbon Dioxide 14 L (22-30) mmol/L Creatinine 0.5 L (0.6-1.2) mg/dL Glucose 61 L (65-100) mg/dL Calcium 7.8 L (8.4-10.2) mg/dL Total Bilirubin 1.30 H (0.1-1.2) mg/dL AST (5-40) units/L Albumin 3.5 L (3.9-5) g/dL Ur Specific [place] 1.033 H (1.003-1.030) Acetaminophen (10.0-30.0) ug/mL Diabetes panel 10/07/21 10/08/21 Range/Units 15:56 05:16 Sodium 136 L 139 (137-145) mmol/L Potassium 3.9 3.4 L (3.6-5.0) mmol/L Chloride 100.1 106.0 (98-107) mmol/L Carbon Dioxide 15 L 14 L (22-30) mmol/L BUN 12 8 (7-17) mg/dL Creatinine 0.6 0.5 L (0.6-1.2) mg/dL Glucose 76 61 L (65-100) mg/dL Calcium 9.0 7.8 L (8.4-10.2) mg/dL AST 48 H 33 (5-40) units/L ALT 32 24 (7-56) units/L Alkaline Phosphatase 84 64 (35-129) units/L Total Protein 7.5 6.5 (6.3-8.2) g/dL Albumin 4.3 3.5 L (3.9-5) g/dL Calcium panel 10/07/21 10/08/21 Range/Units 15:56 05:16 Calcium 9.0 7.8 L (8.4-10.2) mg/dL Albumin 4.3 3.5 L (3.9-5) g/dL Pituitary panel 10/07/21 10/08/21 Range/Units 15:56 05:16 Sodium 136 L 139 (137-145) mmol/L Potassium 3.9 3.4 L (3.6-5.0) mmol/L Chloride 100.1 106.0 (98-107) mmol/L Carbon Dioxide 15 L 14 L (22-30) mmol/L BUN 12 8 (7-17) mg/dL Creatinine 0.6 0.5 L (0.6-1.2) mg/dL Glucose 76 61 L (65-100) mg/dL Calcium 9.0 7.8 L (8.4-10.2) mg/dL Adrenal panel 10/07/21 10/08/21 Range/Units 15:56 05:16 Sodium 136 L 139 (137-145) mmol/L Potassium 3.9 3.4 L (3.6-5.0) mmol/L Chloride 100.1 106.0 (98-107) mmol/L Carbon Dioxide 15 L 14 L (22-30) mmol/L BUN 12 8 (7-17) mg/dL Creatinine 0.6 0.5 L (0.6-1.2) mg/dL Glucose 76 61 L (65-100) mg/dL Calcium 9.0 7.8 L (8.4-10.2) mg/dL Total Bilirubin 1.60 H 1.30 H (0.1-1.2) mg/dL AST 48 H 33 (5-40) units/L ALT 32 24 (7-56) units/L Alkaline Phosphatase 84 64 (35-129) units/L Total Protein 7.5 6.5 (6.3-8.2) g/dL Albumin 4.3 3.5 L (3.9-5) g/dL - Imaging US - abdomen: report reviewed, image reviewed Assessment and Plan 45-year-old female with symptomatic cholelithiasis with elevated bilirubin. Patient is afebrile and stable. Patient says she is interested in having her gallbladder out this admission. MRCP is ordered since she is elevated bilirubin slightly larger than average common bile duct. Tentative plan for laparoscopic cholecystectomy on Sunday. Will start patient on clear liquids.
--- NOTE | 2021-10-08 11:21 | Progress Note ---
Subjective Date of service: 10/08/21 Interval history: 45-year-old with past medical history of hypertension, Crohn's disease, amphetamine abuse was brought to the emergency room because of developing some midsternal chest discomfort after taking too many Tylenol PM and Goody's powder in an attempt to get some sleep. She says that she took these pills around 5 AM. The patient admits that she just got out of intermediate yesterday, after spending 45 days there. The patient later admitted to me that she took about 6 Tylenol PM, 2 Goody's powder, and "a couple of Excedrin" in an attempt to harm/kill herself. The patient denies feeling actively suicidal but says that she was getting accused of restarting using illicit drugs by her daughter after getting out of intermediate and this is how she responded to these accusations. She does deny restarting any illicit drugs, or any alcohol abuse/dependence. Because of the abdominal discomfort and the elevated bilirubin level, the patient will have an ultrasound to rule out cholecystitis and attempt to medically clear her for psychiatric placement. Second troponin is negative but ultrasound more of the right upper quadrant showed cholelithiasis with a positive sonographic Tipton's sign. Please correlate with the clinical findings to exclude acute cholecystitis. Subsequently Case was discussed with surgeon who recommended to admit the patient and put the patient on Levaquin , surgeon will see the patient in the morning 10/08 patient is alert and oriented and offers no specific complaints except right upper quadrant abdominal pain. Abdominal ultrasound results reviewed. General surgery note reviewed and appreciated. She denies any nausea or vomiting. Denies fever or chills denies chest pain or shortness of breath.. Denies dysuria. Lab results reviewed. Patient has a sitter in the room Assessment and plan Acute gallstone cholecystitis Ultrasound of the abdomen results reviewed General SURGERY note reviewed Planned for cholecystectomy on Sunday Started on clear liquids by surgery MRCP ordered to rule out CBD stone History of hypertension Patient states that she takes clonidine 0.1 mg 3 times daily However at this time she is normotensive and will hold off on medication Leukocytosis Improved Continue IV antibiotic Hypokalemia Mild Potassium replacement ordered Monitor electrolytes Obesity class I Counseling at discharge Objective - Constitutional Vitals: Vital Signs - 12hr 10/08/21 10/08/21 10/08/21 01:28 05:00 05:22 Temperature 98.1 F 98.2 F Pulse Rate 94 H 95 H Respiratory 16 16 Rate Blood Pressure 164/92 109/67 [Left] O2 Sat by Pulse 97 96 97 Oximetry General appearance: Present: no acute distress - EENT Eyes: PERRL, EOM intact ENT: hearing intact, clear oral mucosa - Neck Neck: supple, normal ROM, no masses or JVD - Respiratory Respiratory effort: normal Respiratory: bilateral: CTA - Cardiovascular Rhythm: regular Heart Sounds: Present: S1 & S2 Extremities: No edema - Gastrointestinal General gastrointestinal: Present: soft, tender (In the right upper quadrant of the abdomen) Rectal Exam: deferred - Genitourinary Female genitourinary: deferred - Integumentary Integumentary: clear - Musculoskeletal Musculoskeletal: strength equal bilaterally - Neurologic Neurologic: no focal deficits - Psychiatric Psychiatric: appropriate mood/affect - Labs CBC & Chem 7: 10/08/21 05:16 10/08/21 05:16 Labs: Abnormal lab results 10/07/21 10/07/21 10/07/21 Range/Units 15:56 15:56 15:56 WBC 16.2 H (4.5-11.0) K/mm3 Lymph % (Auto) 11.8 L (13.4-35.0) % [place] % (Auto) (0.0-7.3) % [place] # (Auto) 1.2 H (0.0-0.8) K/mm3 Seg Neutrophils % 80.2 H (40.0-70.0) % Seg Neutrophils # 13.0 H (1.8-7.7) K/mm3 Sodium 136 L (137-145) mmol/L Potassium (3.6-5.0) mmol/L Carbon Dioxide 15 L (22-30) mmol/L Creatinine (0.6-1.2) mg/dL Glucose (65-100) mg/dL Calcium (8.4-10.2) mg/dL Total Bilirubin 1.60 H (0.1-1.2) mg/dL AST 48 H (5-40) units/L Albumin (3.9-5) g/dL Ur Specific [place] (1.003-1.030) Acetaminophen 5.0 L (10.0-30.0) ug/mL 10/07/21 10/08/21 10/08/21 Range/Units 16:30 05:16 05:16 WBC (4.5-11.0) K/mm3 Lymph % (Auto) (13.4-35.0) % [place] % (Auto) 8.7 H (0.0-7.3) % [place] # (Auto) (0.0-0.8) K/mm3 Seg Neutrophils % (40.0-70.0) % Seg Neutrophils # (1.8-7.7) K/mm3 Sodium (137-145) mmol/L Potassium 3.4 L (3.6-5.0) mmol/L Carbon Dioxide 14 L (22-30) mmol/L Creatinine 0.5 L (0.6-1.2) mg/dL Glucose 61 L (65-100) mg/dL Calcium 7.8 L (8.4-10.2) mg/dL Total Bilirubin 1.30 H (0.1-1.2) mg/dL AST (5-40) units/L Albumin 3.5 L (3.9-5) g/dL Ur Specific [place] 1.033 H (1.003-1.030) Acetaminophen (10.0-30.0) ug/mL HEART Score - HEART Score EKG: Normal Age: 45-65 Risk factors: 1-2 risk factors Troponin: Troponin T < 0.010 ng/mL (0.00-0.029) 10/07/21 20:04 Troponin: < normal limit
[2021-10-08] MEDS: POTASSIUM CHLORIDE 10 MEQ 10 MEQ/100 ML BAG IV SCH ×2 (11:22→12:57)
[2021-10-08] MEDS: TRIAMCINOLONE 0.1% CREAM 15 GM TP SCH ×2 (11:22→22:11)
--- NOTE | 2021-10-08 12:59 | Magnetic Resonance Report ---
MRI ABDOMEN WITHOUT CONTRAST INDICATION: Elevated liver function testing. TECHNIQUE: Multiplanar, multisequence MR images were obtained through the abdomen without contrast. COMPARISON: Right upper quadrant ultrasound performed on 10/07/2021. FINDINGS: Motion artifact limits this exam. LIVER: No significant abnormality. GALLBLADDER/BILE DUCTS: Cholelithiasis is again noted without evidence of acute cholecystitis. No biju iary ductal dilatation. No choledocholithiasis is clearly seen. PANCREAS: No significant abnormality. SPLEEN: No significant abnormality. ADRENALS: No significant abnormality. KIDNEYS: No significant abnormality. STOMACH / SMALL BOWEL: No significant abnormality. COLON: No significant abnormality. APPENDIX: No significant abnormality. PERITONEUM: No free fluid. No fluid collection. LYMPH NODES: No significant adenopathy. VASCULATURE: No significant abnormality. ADDITIONAL FINDINGS: None. BONES: No significant abnormality. IMPRESSION: 1. Limited exam due to motion artifact. 2. Cholelithiasis without evidence of acute cholecystitis. 3. No biliary ductal dilatation or distinct choledocholithiasis. 4. No other acute findings. Signer Name: Dejuan Gorman MD Signed: 10/08/2021 12:55 PM Workstation Name: [id number]
--- NOTE | 2021-10-08 13:04 | Consultation ---
History of Present Illness - Reason for Consult Consult date: 10/08/21 Reason for consult: took pills - History of Present Psychiatric Illness The patient was seen today. There is a sitter at bedside. The patient is calm, and cooperative, but talkative. She says she had been in skilled nursing for 45 days and when she got out her daughter and everybody were coming at her and making her feel a certain way because the bonded her out. She says she was upset with her daughter, and told them that "maybe yall will be better off if I'm gone." The patient says she took about 7 or 8 tylenol pills. She says when she did she started hurting. The patient says "but I really didn't want to kill myself. I won't ever do that stupid stuff again." She says this is the first time that she has done this. The patient denies SI/HI. She says she has her grandbaby and she loves her family. She says "I promise I have never done nothing that crazy." The patient says she has a history of meth use but hadn't done it in about 4 months. She says she takes Adderall for ADHD. The patient denies hallucinations of any kind. PAST PSYCHIATRIC HISTORY: Diagnoses: ADHD Suicide attempts or Self-harm behavior: Denies Prior psychiatric hospitalizations: Denies Substance Abuse history: Denies Previous psychiatric medications tried: Adderall Outpatient treatment: yes PAST MEDICAL HISTORY: None reported or document Family Psychiatric History: None reported or documented SOCIAL HISTORY Marital Status: Single Living Arrangements: with boyfriend and nephews Employment Status: Employed Access to guns/weapons: denies Education: History of Abuse: denies Legal History: denies REVIEW OF SYSTEMS Constitutional: Negative for weight loss ENT: Negative for stridor Respiratory: Negative for cough or hemoptysis All other systems reviewed and are negative MENTAL STATUS EXAMINATION General Appearance and Behavior: Age appropriate, good hygiene, wearing appropriate clothes, calm and cooperative polite with questioning. Cooperation: engaged Psychomotor Behavior: Psychomotor normal Mood: a lot better Affect and affective range: congruent with stated mood Thought Process: goal directed Thought Content: None Speech: Normal volume, Regular rate and rhythm, Suicidal Ideation: Denies Homicidal Ideation: Denies Hallucinations: Denies Impulse Control: Normal Insight and Judgment: Normal Memory: Normal Attention: attentive Orientation: a/o Assessment and Plan (1)Overdose Treatment Plan d/c 1013 No meds at this time [place]: per primary Disposition: Do not recommend acute psychiatric inpatient treatment The patient to establish outpatient psychiatry The anesthesia attending to further discuss safety plan The patient to follow up with outpatient psych or primary in 7 to 14 days upon discharge Will sign off. Thanks Case staffed with Dr. Hui Medications and Allergies Allergies Allergy/AdvReac Type Severity Reaction Status Date / Time No Known Allergies Allergy Verified 10/08/21 02:15 Home Medications Medication Instructions Recorded Confirmed Last Taken Type Dextroamphetamine/Amphetamine 30 mg PO QDAY 07/24/16 10/07/21 Unknown History [Adderall XR 30 mg] Ibuprofen [Motrin] 800 mg PO Q8HR PRN #15 tablet 07/24/16 10/07/21 Unknown Rx Trazodone HCl [Oleptro ER] 150 mg PO QHS 07/24/16 10/08/21 10/06/21 20:00 History clonazePAM [ Klonopin] 0.5 mg PO BID PRN 07/24/16 10/07/21 Unknown History Permethrin 5% [Acticin 5% CREAM] 1 applicatio TP ONCE #1 tube 07/07/19 10/07/21 Unknown Rx Triamcinolone Aceton 0.1% (Nf) 1 applic TP BID #1 tube 07/07/19 10/07/21 Unknown Rx [Kenalog (NF)] diphenhydrAMINE [Benadryl CAP] 25 mg PO Q6HR PRN #30 capsule 07/07/19 10/07/21 Unknown Rx Active Meds: Active Medications Albuterol (Albuterol 2.5 Mg/3 Ml Nebu) 2.5 mg IH Q4HRT PRN PRN Reason: Shortness Of Breath Albuterol/Ipratropium (Ipratropium/Albuterol Sulfate 3 Ml Ampul.Neb) 1 ampul IH Q6HRT [facility] Last Admin: 10/08/21 07:59 Dose: 1 ampul Documented by: Clonazepam (Clonazepam 0.5 Mg Tab) 0.5 mg PO BID PRN PRN Reason: Anxiety Famotidine (Famotidine 20 Mg/2 Ml Inj) 20 mg IV BID [facility] Last Admin: 10/08/21 10:18 Dose: 20 mg Documented by: Heparin Sodium (Porcine) (Heparin 5,000 Unit/1 Ml Vial) 5,000 unit SUB-Q Q8HR [facility] Last Admin: 10/08/21 05:35 Dose: Not Given Documented by: Hydromorphone HCl (Hydromorphone 1 Mg/1 Ml Inj) 0.5 mg IV Q3H PRN PRN Reason: Pain , Severe (7-10) Dextrose/Sodium Chloride (D5/0.45ns) 1,000 mls @ 75 mls/hr IV DIRECT [facility] Last Admin: 10/08/21 01:52 Dose: 125 mls/hr Documented by: Levofloxacin/Dextrose (Levaquin 750mg/150ml) 750 mg in 150 mls @ 100 mls/hr IV Q24H [facility]; Protocol Ibuprofen (Ibuprofen 600 Mg Tab) 600 mg PO Q6H PRN PRN Reason: Pain, Mild (1-3) Miscellaneous Medication (Dextroamphetamine/Amphetamine [Adderall Xr 30 Mg]) 30 mg PO QDAY [facility] Morphine Sulfate (Morphine 2 Mg/1 Ml Inj) 2 mg IV Q4H PRN PRN Reason: Pain, Moderate (4-6) Ondansetron HCl (Ondansetron 4 Mg/2 Ml Inj) 4 mg IV Q8H PRN PRN Reason: Nausea And Vomiting Sodium Chloride (Sodium Chloride 0.9% 10 Ml Flush Syringe) 10 ml IV BID [facility] Last Admin: 10/08/21 10:19 Dose: 10 ml Documented by: Sodium Chloride (Sodium Chloride 0.9% 10 Ml Flush Syringe) 10 ml IV PRN PRN PRN Reason: LINE FLUSH Trazodone HCl (Trazodone 50 Mg Tab) 150 mg PO QHS [facility] Triamcinolone Acetonide (Triamcinolone 0.1% Cream 15 Gm) 1 applic TP BID [facility] Last Admin: 10/08/21 11:22 Dose: 1 applic Documented by: Mental Status Exam - Vital signs Last Vital Signs Temp 98.2 F 10/08/21 05:22 Pulse 83 10/08/21 07:59 Resp 18 10/08/21 07:59 BP 109/67 10/08/21 05:22 Pulse Ox 98 10/08/21 07:59 Results Result Diagrams: 10/08/21 05:16 10/08/21 05:16 Abnormal lab results 10/07/21 10/07/21 10/07/21 Range/Units 15:56 15:56 15:56 WBC 16.2 H (4.5-11.0) K/mm3 Lymph % (Auto) 11.8 L (13.4-35.0) % [place] % (Auto) (0.0-7.3) % [place] # (Auto) 1.2 H (0.0-0.8) K/mm3 Seg Neutrophils % 80.2 H (40.0-70.0) % Seg Neutrophils # 13.0 H (1.8-7.7) K/mm3 Sodium 136 L (137-145) mmol/L Potassium (3.6-5.0) mmol/L Carbon Dioxide 15 L (22-30) mmol/L Creatinine (0.6-1.2) mg/dL Glucose (65-100) mg/dL Calcium (8.4-10.2) mg/dL Total Bilirubin 1.60 H (0.1-1.2) mg/dL AST 48 H (5-40) units/L Albumin (3.9-5) g/dL Ur Specific [place] (1.003-1.030) Acetaminophen 5.0 L (10.0-30.0) ug/mL 10/07/21 10/08/21 10/08/21 Range/Units 16:30 05:16 05:16 WBC (4.5-11.0) K/mm3 Lymph % (Auto) (13.4-35.0) % [place] % (Auto) 8.7 H (0.0-7.3) % [place] # (Auto) (0.0-0.8) K/mm3 Seg Neutrophils % (40.0-70.0) % Seg Neutrophils # (1.8-7.7) K/mm3 Sodium (137-145) mmol/L Potassium 3.4 L (3.6-5.0) mmol/L Carbon Dioxide 14 L (22-30) mmol/L Creatinine 0.5 L (0.6-1.2) mg/dL Glucose 61 L (65-100) mg/dL Calcium 7.8 L (8.4-10.2) mg/dL Total Bilirubin 1.30 H (0.1-1.2) mg/dL AST (5-40) units/L Albumin 3.5 L (3.9-5) g/dL Ur Specific [place] 1.033 H (1.003-1.030) Acetaminophen (10.0-30.0) ug/mL All other labs normal.
--- NOTE | 2021-10-08 13:25 | Electrocardiograph Report ---
[facility] Test Date: 2021-10-07 Test Time: 14:14:21 Pat Name: STAN SALMERON Department: Room: A383 Gender: F Field Identification Specialist: OFELIA : [id number] Requested By: RUTHY YANG Order Number: [id number] Reading MD: Yanelis Anaya Measurements Intervals [place] Rate: 105 P: 61 PA: 126 QRS: 60 QRSD: 80 T: 45 QT: 357 QTc: 472 Interpretive Statements Sinus tachycardia Probable left atrial enlargement No previous ECG available for comparison Electronically Signed On 10-08-2021 13:25:34 EST by Yanelis Anaya
[2021-10-08] MEDS: traZODone 50 MG TAB PO SCH (21:57)
[2021-10-08] MEDS ORDERED: TRAZODONE HCL 150 MG PO SCH (22:00)
[2021-10-09] MEDS: IPRATROPIUM/ALBUTEROL SULFATE 3 ML AMPUL.NEB IH SCH ×4 (02:58→20:36)
[2021-10-09] MEDS: HEPARIN 5,000 UNIT/1 ML VIAL SUB-Q SCH ×3 (05:56→21:20)
[2021-10-09] MEDS: TRIAMCINOLONE 0.1% CREAM 15 GM TP SCH ×2 (10:11→21:20)
[2021-10-09] MEDS: FAMOTIDINE 20 MG/2 ML INJ IV SCH ×2 (10:12→21:20)
--- NOTE | 2021-10-09 10:16 | Progress Note ---
Assessment and Plan 45-year-old female with symptomatic cholelithiasis. Afebrile and stable. Patient on the schedule for tomorrow afternoon for laparoscopic cholecystectomy. Patient signed informed consent expressed understanding risk and benefits. Subjective Date of service: 10/09/21 Narrative: No acute events overnight. Patient says she continues to have abdominal pain that is unchanged. Patient was seen by psychiatry yesterday and cleared of any acute psychological conditions. Patient had MRCP yesterday that showed no biliary obstruction, and no radiographic signs of cholecystitis but did show cholelithiasis. Objective Vital Signs - 12hr 10/09/21 10/09/21 10/09/21 00:13 04:34 08:03 Temperature 98.3 F Pulse Rate 93 H Pulse Rate [ 100 H Anterior Bilateral Throughout] Respiratory 20 Rate Respiratory 20 Rate [Anterior Bilateral Throughout] Blood Pressure 135/78 Blood Pressure [Left] O2 Sat by Pulse 96 97 98 Oximetry 10/09/21 10/09/21 09:29 09:34 Temperature 98.6 F Pulse Rate 94 H Pulse Rate [ Anterior Bilateral Throughout] Respiratory 20 Rate Respiratory Rate [Anterior Bilateral Throughout] Blood Pressure Blood Pressure 103/50 [Left] O2 Sat by Pulse 96 96 Oximetry - General physical appearance well developed, no distress, moderate pain - Eyes PERRL - Respiratory normal expansion, normal respiratory effort - Abdomen soft, not guarding, not rigid, other (Tender to palpation right upper quadrant) - Neurologic normal coordination - Psychiatric oriented to time, oriented to person, speech is normal - Labs 10/08/21 05:16 10/08/21 05:16
--- NOTE | 2021-10-09 12:48 | Progress Note ---
Subjective Date of service: 10/09/21 Interval history: 45-year-old with past medical history of hypertension, Crohn's disease, amphetamine abuse was brought to the emergency room because of developing some midsternal chest discomfort after taking too many Tylenol PM and Goody's powder in an attempt to get some sleep. She says that she took these pills around 5 AM. The patient admits that she just got out of assisted yesterday, after spending 45 days there. The patient later admitted to me that she took about 6 Tylenol PM, 2 Goody's powder, and "a couple of Excedrin" in an attempt to harm/kill herself. The patient denies feeling actively suicidal but says that she was getting accused of restarting using illicit drugs by her daughter after getting out of assisted and this is how she responded to these accusations. She does deny restarting any illicit drugs, or any alcohol abuse/dependence. Because of the abdominal discomfort and the elevated bilirubin level, the patient will have an ultrasound to rule out cholecystitis and attempt to medically clear her for psychiatric placement. Second troponin is negative but ultrasound more of the right upper quadrant showed cholelithiasis with a positive sonographic Tipton's sign. Please correlate with the clinical findings to exclude acute cholecystitis. Subsequently Case was discussed with surgeon who recommended to admit the patient and put the patient on Levaquin , surgeon will see the patient in the morning 10/08 patient is alert and oriented and offers no specific complaints except right upper quadrant abdominal pain. Abdominal ultrasound results reviewed. General surgery note reviewed and appreciated. She denies any nausea or vomiting. Denies fever or chills denies chest pain or shortness of breath.. Denies dysuria. Lab results reviewed. Patient has a sitter in the room 10/09 patient is resting comfortably, no specific complaints except pain in the right upper quadrant of the abdomen. She denies any nausea, vomiting, fever or chills. Denies diarrhea, chest pain or shortness of breath. General surgery note reviewed. Psych nurse practitioner note reviewed. 1013 discontinued Assessment and plan Acute gallstone cholecystitis Ultrasound of the abdomen results reviewed General SURGERY note reviewed Planned for cholecystectomy on Sunday Continue clear liquids MRCP results reviewed / no CBD stone History of hypertension Patient states that she takes clonidine 0.1 mg 3 times daily However at this time she is normotensive and will hold off on medication Leukocytosis Improved Continue IV antibiotic Hypokalemia Mild Potassium replacement Monitor electrolytes Obesity class I Counseling at discharge Objective - Constitutional Vitals: Vital Signs - 12hr 10/09/21 10/09/21 10/09/21 04:34 08:03 09:29 Temperature 98.3 F Pulse Rate 93 H Pulse Rate [ 100 H Anterior Bilateral Throughout] Respiratory 20 Rate Respiratory 20 Rate [Anterior Bilateral Throughout] Blood Pressure 135/78 Blood Pressure [Left] O2 Sat by Pulse 97 98 96 Oximetry 10/09/21 10/09/21 09:34 11:48 Temperature 98.6 F 98.0 F Pulse Rate 94 H 89 Pulse Rate [ Anterior Bilateral Throughout] Respiratory 20 18 Rate Respiratory Rate [Anterior Bilateral Throughout] Blood Pressure 131/80 Blood Pressure 103/50 [Left] O2 Sat by Pulse 96 98 Oximetry General appearance: Present: no acute distress, well-nourished - EENT Eyes: PERRL, EOM intact ENT: hearing intact, clear oral mucosa - Neck Neck: supple, normal ROM - Respiratory Respiratory effort: normal Respiratory: bilateral: CTA - Cardiovascular Rhythm: regular Heart Sounds: Present: S1 & S2 Extremities: No edema - Gastrointestinal General gastrointestinal: Present: soft, tender (In the right upper quadrant) Rectal Exam: deferred - Genitourinary Female genitourinary: deferred - Integumentary Integumentary: clear - Neurologic Neurologic: no focal deficits, moves all extremities - Psychiatric Psychiatric: appropriate mood/affect - Labs CBC & Chem 7: 10/08/21 05:16 10/08/21 05:16 HEART Score - HEART Score EKG: Normal Age: 45-65 Risk factors: 1-2 risk factors Troponin: Troponin T < 0.010 ng/mL (0.00-0.029) 10/07/21 20:04 Troponin: < normal limit
[2021-10-09] MEDS: D5W/0.45% NACL 1,000 ML IV SCH (15:09)
[2021-10-09] MEDS: traZODone 50 MG TAB PO SCH (21:19)
[2021-10-10] MEDS: D5W/0.45% NACL 1,000 ML IV SCH (06:10)
[2021-10-10] MEDS: HEPARIN 5,000 UNIT/1 ML VIAL SUB-Q SCH ×3 (06:10→21:54)
[2021-10-10 06:17] LABS: Hematocrit 33.1 % (30.3-42.9); Mean Corpuscular HGB Conc 33 % (30-34); Mean Corpuscular Volume 89 fl (79-97); Platelet Count 201 K/mm3 (140-440); Red Blood Count 3.72 M/mm3 (3.65-5.03); Red Cell Distribution Width 15.1 % (13.2-15.2)
[2021-10-10 06:38] LABS: Alanine Aminotransferase 20 units/L (7-56); Albumin 3.4 g/dL (3.9-5); Calcium 7.8 mg/dL (8.4-10.2); Hemolysis Index 4
[2021-10-10 06:50] LABS: BUN/Creatinine Ratio 3
[2021-10-10 06:51] LABS: Blood Urea Nitrogen 1 mg/dL (7-17)
[2021-10-10] MEDS: POTASSIUM CHLORIDE 10 MEQ 10 MEQ/100 ML BAG IV SCH ×3 (08:35→13:23)
[2021-10-10] MEDS: IPRATROPIUM/ALBUTEROL SULFATE 3 ML AMPUL.NEB IH SCH ×3 (08:39→21:25)
[2021-10-10] MEDS: MORPHINE 2 MG/1 ML INJ IV PRN ×2 (08:56→16:34)
[2021-10-10] MEDS: FAMOTIDINE 20 MG/2 ML INJ IV SCH ×2 (09:01→21:52)
[2021-10-10] MEDS: TRIAMCINOLONE 0.1% CREAM 15 GM TP SCH ×2 (09:01→21:53)
--- NOTE | 2021-10-10 11:01 | Progress Note ---
Subjective Date of service: 10/10/21 Interval history: 45-year-old with past medical history of hypertension, Crohn's disease, amphetamine abuse was brought to the emergency room because of developing some midsternal chest discomfort after taking too many Tylenol PM and Goody's powder in an attempt to get some sleep. She says that she took these pills around 5 AM. The patient admits that she just got out of alf yesterday, after spending 45 days there. The patient later admitted to me that she took about 6 Tylenol PM, 2 Goody's powder, and "a couple of Excedrin" in an attempt to harm/kill herself. The patient denies feeling actively suicidal but says that she was getting accused of restarting using illicit drugs by her daughter after getting out of alf and this is how she responded to these accusations. She does deny restarting any illicit drugs, or any alcohol abuse/dependence. Because of the abdominal discomfort and the elevated bilirubin level, the patient will have an ultrasound to rule out cholecystitis and attempt to medically clear her for psychiatric placement. Second troponin is negative but ultrasound more of the right upper quadrant showed cholelithiasis with a positive sonographic Tipton's sign. Please correlate with the clinical findings to exclude acute cholecystitis. Subsequently Case was discussed with surgeon who recommended to admit the patient and put the patient on Levaquin , surgeon will see the patient in the morning 10/08 patient is alert and oriented and offers no specific complaints except right upper quadrant abdominal pain. Abdominal ultrasound results reviewed. General surgery note reviewed and appreciated. She denies any nausea or vomiting. Denies fever or chills denies chest pain or shortness of breath.. Denies dysuria. Lab results reviewed. Patient has a sitter in the room 10/09 patient is resting comfortably, no specific complaints except pain in the right upper quadrant of the abdomen. She denies any nausea, vomiting, fever or chills. Denies diarrhea, chest pain or shortness of breath. General surgery note reviewed. Psych nurse practitioner note reviewed. 1013 discontinued 10/10 no acute events overnight. No specific complaints except some pain in the right upper quadrant. Denies fever or chills. Denies nausea or vomiting Assessment and plan Acute gallstone cholecystitis Ultrasound of the abdomen results reviewed General SURGERY note reviewed Planned for lap cholecystectomy today N.p.o. MRCP results reviewed / no CBD stone History of hypertension Patient states that she takes clonidine 0.1 mg 3 times daily However at this time she is normotensive and will hold off on medication Leukocytosis Improved Continue IV antibiotic Hypokalemia Serum potassium 3.0 Will order IV supplements as the patient is n.p.o. Discussed with RN Obesity class I Counseling at discharge Objective - Constitutional Vitals: Vital Signs - 12hr 10/10/21 10/10/21 05:27 08:00 Temperature 98.4 F Pulse Rate 110 H Respiratory 18 Rate Blood Pressure 111/60 [Left] O2 Sat by Pulse 97 96 Oximetry General appearance: Present: no acute distress, well-nourished - EENT Eyes: PERRL, EOM intact ENT: hearing intact, clear oral mucosa - Neck Neck: supple, normal ROM - Respiratory Respiratory effort: normal Respiratory: bilateral: CTA - Cardiovascular Rhythm: regular Heart Sounds: Present: S1 & S2 Extremities: No edema - Gastrointestinal General gastrointestinal: Present: soft, tender (Right upper quadrant) Rectal Exam: deferred - Integumentary Integumentary: clear - Musculoskeletal Musculoskeletal: strength equal bilaterally - Neurologic Neurologic: no focal deficits - Psychiatric Psychiatric: appropriate mood/affect - Labs CBC & Chem 7: 10/10/21 05:39 10/10/21 05:39 Labs: Abnormal lab results 10/10/21 Range/Units 05:39 Potassium 3.0 L (3.6-5.0) mmol/L Carbon Dioxide 20 L (22-30) mmol/L BUN 1 L (7-17) mg/dL Creatinine 0.4 L (0.6-1.2) mg/dL Calcium 7.8 L (8.4-10.2) mg/dL Albumin 3.4 L (3.9-5) g/dL HEART Score - HEART Score EKG: Normal Age: 45-65 Risk factors: 1-2 risk factors Troponin: Troponin T < 0.010 ng/mL (0.00-0.029) 10/07/21 20:04 Troponin: < normal limit
--- NOTE | 2021-10-10 11:21 | Anesthesia Consultation ---
Anesthesia Consult and Med Hx Date of service: 10/10/21 - Airway Anesthetic Teeth Evaluation: Good (Multiple missing teeth.) ROM Head & Neck: Adequate Mental/Hyoid Distance: Adequate Mallampati Class: Class II Intubation Access Assessment: Probably Good - Pulmonary Exam CTA: Yes - Pre-Operative Health Status ASA Pre-Surgery Classification: ASA2, Emergency Proposed Anesthetic Plan: General - Pulmonary Hx Asthma: No COPD: No Hx Pneumonia: No - Cardiovascular System Hx Hypertension: Yes - Central Nervous System Hx Psychiatric Problems: Yes (Hx. ADHD; Suicide attempt and ideation) - Gastrointestinal Hx Gastroesophageal Reflux Disease: No - Endocrine Hx Renal Disease: No Hx Liver Disease: No Hx Non-Insulin Dependent Diabetes: No Hx Thyroid Disease: No - Other Systems Hx Alcohol Use: No Hx Substance Use: Yes (Hx. Methamphetamine use- last used 4 months ago.) Hx Cancer: No Hx Obesity: Yes (BMI 35.6kg) - Additional Comments Anesthesia Medical History Comments: Denied previous anesthesia complication.
--- NOTE | 2021-10-10 11:24 | Anesthesia Day of Surgery ---
Anesthesia Day of Surgery - Day of Surgery Patient Examined: Yes Patient H&P Reviewed: Yes Patient is NPO: Yes Beta Blockers: No Cardiac Clearance: No Pulmonary Clearance: No
--- NOTE | 2021-10-10 12:51 | Event Note ---
Date: 10/10/21 No acute events overnight. Patient continued abdominal pain. Patient scheduled for lap cami today.
[2021-10-10] MEDS: SODIUM CHLORIDE 0.9% 1000 ML 1,000 ML IV SCH (16:34)
[2021-10-10] MEDS ORDERED: BUPIVACAINE/PF (0.5%) 5 MG/1 ML 30 ML VIAL INFILTRATI ONE ×2 (18:02→18:53)
[2021-10-10] MEDS ORDERED: LIDOCAINE (1%) 10 MG/1 ML VIAL 20 ML MDV ONE (18:02)
[2021-10-10] MEDS ORDERED: LIDOCAINE MPF (2%) 20 MG/1 ML VIAL 5 ML ONE (18:05)
[2021-10-10] MEDS ORDERED: HYDROmorphone 1 MG/1 ML INJ ONE (18:05)
[2021-10-10] MEDS ORDERED: propofoL 200 MG/20 ML VIAL IV ONE (18:05)
[2021-10-10] MEDS ORDERED: ROCURONIUM 50 MG/5 ML INJ IV ONE (18:06)
[2021-10-10] MEDS ORDERED: HYDROmorphone 1 MG/1 ML INJ IV PRN (18:36)
[2021-10-10] MEDS ORDERED: ONDANSETRON 4 MG/2 ML INJ IV PRN (18:36)
[2021-10-10] MEDS ORDERED: ceFAZolin 1 GM VIAL ONE ×2 (18:46)
[2021-10-10] MEDS ORDERED: LIDOCAINE (1%) 10 MG/1 ML VIAL 20 ML MDV INFILTRATI ONE (18:53)
[2021-10-10] MEDS ORDERED: SODIUM CHLORIDE 0.9% IRR 1,500 ML BOTTLE IR ONE (18:54)
[2021-10-10] MEDS ORDERED: dexAMETHasone 20 MG/5 ML VIAL ONE (18:54)
[2021-10-10] MEDS ORDERED: PHENYLEPHRINE/NS 1,000 MCG/10 ML SYRINGE (OR USE) IV ONE (19:55)
[2021-10-10] MEDS ORDERED: NEOSTIGMINE 10MG/10 ML INJ MDV ONE (19:59)
[2021-10-10] MEDS ORDERED: GLYCOPYRROLATE 0.4 MG/2 ML INJ ONE (19:59)
[2021-10-10] MEDS ORDERED: LACTATED RINGERS 1,000 ML ONE (19:59)
[2021-10-10] MEDS ORDERED: KETOROLAC 30 MG/1 ML INJ ONE (20:06)
--- NOTE | 2021-10-10 20:28 | Operative Report ---
Operative Report Operative Report: Procedure Performed: Lap cholecystectomy Date of Service: 10/10/2021 Primary Surgeon: Jerry Hernandez MD Assisted by: Jun Escobar MD Anesthesia: General Pre-Operative Diagnosis: cholelithiasis Post-Operative Diagnosis: Same Indications for Procedure: 45-year-old female presented from the emergency room with right upper quadrant pain. Ultrasound showed cholelithiasis. Patient was having pain for over 2 months patient was consented to have laparoscopic cholecystectomy this admission. Patient signed informed consent expressed understanding risk and benefits. Description of Procedure(s): The patient was brought to the operating room and underwent general anesthesia after lower extremity SCD were placed. The abdomen was prepped and draped in the standard fashion. IV antibiotics were given and a time out was performed. Using a veress needle via a stab incision in the left subcostal region, the abdomen was insuflated to a pressure of 15mmHg. Using optivew technique, a 5mm trocar was placed just superior and to the left of the umbilicus. There was no gross injury noted to any intra-abdominal structures. After which working trocars were placed under direct visualization. A 12 mm trocar was placed in the left midabdomen due to a ventral hernia that was anterior diaphragm where the falciform ligament was seen., Two more 5 mm trocars were inserted in the right lateral sites. The gallbladder was located and grasped at the fundus and retracted up toward the patient's right shoulder. The infundibulum was grasped and retracted laterally. A window was made between the cystic artery and the cystic duct, clearly delineating the two structures. These were clipped with a 5 mm clip boiler operators supervisor and divided. The peritoneum was incised with hook cautery, and the gallbladder was taken from the liver bed, ensuring hemostatis. The endocatch bag was placed in the abdomen and the gallbladder was then removed from the abdomen. The liver bed was examined and the trocars removed under direct visualization. The insufflation was then terminated. The left mid abdomen incision was closed with a 0-vicryl suture using a suture passer device. The skin incisions were closed using 4-0 Monocryl sutures. All the wounds dressed with dermabond. The patient tolerated the procedure well, was extubated and taken to the recovery room in satisfactory condition. Finding(s): An unusual anterior diaphragmatic hernia, large gallbladder with 1 large stone Intra-Operative Complications: none Specimens Removed: Gallbladder with contents Estimated Blood Loss: <10ml Complications: none immediate
--- NOTE | 2021-10-10 21:05 | Post Anesthesia Evaluation ---
- Post Anesthesia Evaluation Patient Participated: Yes Airway Patent: Yes Stable Respiratory Function: Yes Nausea/Vomiting: No Temp > 96.8F: Yes Pain Manageable: Yes Adequeate Hydration: Yes Anesthesia Complications: No
[2021-10-10] MEDS ORDERED: oxyCODONE /ACETAMINOPHEN 5-325MG TAB PO PRN (21:40)
[2021-10-10] MEDS: traZODone 50 MG TAB PO SCH (21:52)
[2021-10-11] MEDS: KETOROLAC 30 MG/1 ML INJ IV SCH ×2 (00:03→06:04)
[2021-10-11 05:10] VITALS: BP 118/80
[2021-10-11] MEDS: HEPARIN 5,000 UNIT/1 ML VIAL SUB-Q SCH (06:09)
[2021-10-11] MEDS: SODIUM CHLORIDE 0.9% 1000 ML 1,000 ML IV SCH (06:15)
[2021-10-11 06:25] LABS: Basophils % (Auto) 0.1 % (0.0-1.8); Hematocrit 33.1 % (30.3-42.9); Hemoglobin 10.8 gm/dl (10.1-14.3); Lymphocytes # (Auto) 0.5 K/mm3 (1.2-5.4); Lymphocytes % (Auto) 7.3 % (13.4-35.0); Mean Corpuscular HGB Conc 33 % (30-34); Mean Corpuscular Volume 89 fl (79-97); Monocytes # (Auto) 0.2 K/mm3 (0.0-0.8); Monocytes % (Auto) 2.7 % (0.0-7.3); Platelet Count 224 K/mm3 (140-440); Red Blood Count 3.71 M/mm3 (3.65-5.03); Red Cell Distribution Width 15.5 % (13.2-15.2)
[2021-10-11 06:52] LABS: Alanine Aminotransferase 28 units/L (7-56); Albumin 3.2 g/dL (3.9-5); Blood Urea Nitrogen 2 mg/dL (7-17); Calcium 8.2 mg/dL (8.4-10.2); Hemolysis Index 2
[2021-10-11 06:57] LABS: BUN/Creatinine Ratio 5
--- NOTE | 2021-10-11 08:54 | Post Anesthesia Evaluation ---
- Post Anesthesia Evaluation Patient Participated: Yes Airway Patent: Yes Stable Respiratory Function: Yes Nausea/Vomiting: No Temp > 96.8F: Yes Pain Manageable: Yes Adequeate Hydration: Yes Anesthesia Complications: No Block Receding Appropriately: Not Applicable Patient on Ventilator: No
--- NOTE | 2021-10-11 08:59 | Discharge Summary ---
Providers - Providers Date of Admission: 10/07/21 22:21 Attending physician: NORMA ADAMS MD 10/07/21 22:18 Consult to Physician [CONS] Urgent Comment: Consulting Provider: DAMON BONDS Physician Instructions: Reason For Exam: Cholecystitis 10/07/21 22:45 psychiatry consult [Consult to Mental Health] [CONS] Routine Reason For Exam: Suicidal attempt Primary care physician: [employer] Hospitalization Reason for admission: abdominal pain Condition: Stable Hospital course: 45-year-old with past medical history of hypertension, Crohn's disease, amphetamine abuse was brought to the emergency room because of developing some midsternal chest discomfort after taking too many Tylenol PM and Goody's powder in an attempt to get some sleep. She says that she took these pills around 5 AM. The patient admits that she just got out of longterm yesterday, after spending 45 days there. The patient later admitted to me that she took about 6 Tylenol PM, 2 Goody's powder, and "a couple of Excedrin" in an attempt to harm/kill herself. The patient denies feeling actively suicidal but says that she was getting accused of restarting using illicit drugs by her daughter after getting out of longterm and this is how she responded to these accusations. She does deny restarting any illicit drugs, or any alcohol abuse/dependence. Because of the abdominal discomfort and the elevated bilirubin level, the patient will have an ultrasound to rule out cholecystitis and attempt to medically clear her for psychiatric placement. Second troponin is negative but ultrasound more of the right upper quadrant showed cholelithiasis with a positive sonographic Tipton's sign. Please correlate with the clinical findings to exclude acute cholecystitis. Subsequently Case was discussed with surgeon who recommended to admit the patient and put the patient on Levaquin , surgeon will see the patient in the morning 10/08 patient is alert and oriented and offers no specific complaints except right upper quadrant abdominal pain. Abdominal ultrasound results reviewed. General surgery note reviewed and appreciated. She denies any nausea or vomiting. Denies fever or chills denies chest pain or shortness of breath.. Denies dysuria. Lab results reviewed. Patient has a sitter in the room 10/09 patient is resting comfortably, no specific complaints except pain in the right upper quadrant of the abdomen. She denies any nausea, vomiting, fever or chills. Denies diarrhea, chest pain or shortness of breath. General surgery note reviewed. Psych nurse practitioner note reviewed. 1013 discontinued 10/10 no acute events overnight. No specific complaints except some pain in the right upper quadrant. Denies fever or chills. Denies nausea or vomiting Assessment and plan Acute gallstone cholecystitis Ultrasound of the abdomen results reviewed General SURGERY note reviewed Planned for lap cholecystectomy today N.p.o. MRCP results reviewed / no CBD stone History of hypertension Patient states that she takes clonidine 0.1 mg 3 times daily However at this time she is normotensive and will hold off on medication Leukocytosis Improved Continue IV antibiotic Hypokalemia Serum potassium 3.0 Will order IV supplements as the patient is n.p.o. Discussed with RN Obesity class I Counseling at discharge 10/11: Patient seen and examined, resting comfortable, tolerating diet, has moved her bowel. Postop day #1 status post uneventful laparoscopic cholecystectomy for symptomatic cholelithiasis. Afebrile and stable. Okay to discharge to home. Patient to follow-up in the office in 2 weeks. Patient can shower and advance diet as tolerated. Disposition: 01 HOME / SELF CARE / HOMELESS Final Discharge Diagnosis (Prints w/discharge instructions): Acute gallstone cholecystitis Time spent for discharge: 35 MINS Core Measure Documentation - Palliative Care Palliative Care/ Comfort Measures: Not Applicable - Core Measures Any of the following diagnoses?: none Exam - Physical Exam Narrative exam: General appearance: Present: no acute distress, well-nourished - EENT Eyes: PERRL, EOM intact ENT: hearing intact, clear oral mucosa - Neck Neck: supple, normal ROM - Respiratory Respiratory effort: normal Respiratory: bilateral: CTA - Cardiovascular Rhythm: regular Heart Sounds: Present: S1 & S2 Extremities: No edema - Gastrointestinal General gastrointestinal: Present: soft, tender around surgical site Rectal Exam: deferred - Integumentary Integumentary: clear - Musculoskeletal Musculoskeletal: strength equal bilaterally - Neurologic Neurologic: no focal deficits - Psychiatric Psychiatric: appropriate mood/affect - Constitutional Vitals: Temp Pulse Resp BP Pulse Ox 98.4 F 87 18 118/80 97 10/11/21 05:09 10/11/21 05:09 10/11/21 05:09 10/11/21 05:09 10/11/21 08:00 Plan Activity: advance as tolerated, fall precautions Diet: low fat Special Instructions: record daily weights, record daily BP diary, smoking cessation, physical therapy, occupational therapy Follow up with: PRIMARY CARE, [Primary Care Provider] - 3-5 Days DAMON BONDS MD [Staff Physician] - 14 Days Prescriptions: clonazePAM [KlonoPIN] 0.5 mg PO BID PRN #30 cap PRN Reason: Anxiety traMADoL [Ultram] 50 mg PO Q6HR PRN #10 tablet PRN Reason: Pain
[2021-10-11] MEDS: FAMOTIDINE 20 MG/2 ML INJ IV SCH (09:38)
[2021-10-11] MEDS: TRIAMCINOLONE 0.1% CREAM 15 GM TP SCH (09:40)
--- NOTE | 2021-10-11 11:00 | Progress Note ---
Assessment and Plan Postop day #1 status post uneventful laparoscopic cholecystectomy for symptomatic cholelithiasis. Afebrile and stable. Okay to discharge to home. Patient to follow-up in the office in 2 weeks. Patient can shower and advance diet as tolerated. Subjective Date of service: 10/11/21 Narrative: No acute events overnight. Patient says that she feels well with only postsu rgical pain. She denies any nausea vomiting and wants to eat. Objective Vital Signs - 12hr 10/11/21 10/11/21 10/11/21 05:09 07:33 08:00 Temperature 98.4 F Pulse Rate 87 Respiratory 18 Rate Blood Pressure 118/80 O2 Sat by Pulse 93 96 97 Oximetry - General physical appearance well developed, no distress, no pain, obese - Eyes PERRL - ENT no hearing loss - Respiratory normal expansion, normal respiratory effort - Abdomen soft (Appropriately tender to palpation, incisions clean dry and intact) - Psychiatric oriented to time, oriented to person - Labs 10/11/21 05:56 10/11/21 05:56 Diabetes panel 10/11/21 Range/Units 05:56 Sodium 141 (137-145) mmol/L Potassium 3.9 D (3.6-5.0) mmol/L Chloride 105.6 (98-107) mmol/L Carbon Dioxide 22 (22-30) mmol/L BUN 2 L (7-17) mg/dL Creatinine 0.4 L (0.6-1.2) mg/dL Glucose 124 H (65-100) mg/dL Calcium 8.2 L (8.4-10.2) mg/dL AST 35 (5-40) units/L ALT 28 (7-56) units/L Alkaline Phosphatase 63 (35-129) units/L Total Protein 6.3 (6.3-8.2) g/dL Albumin 3.2 L (3.9-5) g/dL Calcium panel 10/11/21 Range/Units 05:56 Calcium 8.2 L (8.4-10.2) mg/dL Albumin 3.2 L (3.9-5) g/dL Pituitary panel 10/11/21 Range/Units 05:56 Sodium 141 (137-145) mmol/L Potassium 3.9 D (3.6-5.0) mmol/L Chloride 105.6 (98-107) mmol/L Carbon Dioxide 22 (22-30) mmol/L BUN 2 L (7-17) mg/dL Creatinine 0.4 L (0.6-1.2) mg/dL Glucose 124 H (65-100) mg/dL Calcium 8.2 L (8.4-10.2) mg/dL Adrenal panel 10/11/21 Range/Units 05:56 Sodium 141 (137-145) mmol/L Potassium 3.9 D (3.6-5.0) mmol/L Chloride 105.6 (98-107) mmol/L Carbon Dioxide 22 (22-30) mmol/L BUN 2 L (7-17) mg/dL Creatinine 0.4 L (0.6-1.2) mg/dL Glucose 124 H (65-100) mg/dL Calcium 8.2 L (8.4-10.2) mg/dL Total Bilirubin 0.40 (0.1-1.2) mg/dL AST 35 (5-40) units/L ALT 28 (7-56) units/L Alkaline Phosphatase 63 (35-129) units/L Total Protein 6.3 (6.3-8.2) g/dL Albumin 3.2 L (3.9-5) g/dL
== END 2021-10-11 12:36 | disposition home or self-care (01) ==
LOC: ED 13:56 → 3A 22:21
PROVIDERS: ADMIT Hospitalist; ATTEND Internal Medicine
DX: K81.0 Acute cholecystitis (principal); T39.1X2A Poisoning by 4-Aminophenol derivatives, intentional self-harm, initial encounter; I10 Essential (primary) hypertension; K50.90 Crohn's disease, unspecified, without complications; D72.829 Elevated white blood cell count, unspecified; R07.89 Other chest pain; E87.6 Hypokalemia; E66.9 Obesity, unspecified; Z79.899 Other long term (current) drug therapy; Z98.890 Other specified postprocedural states; Z68.41 Body mass index [BMI] 40.0-44.9, adult
CPT/HCPCS: 36415; 47563; 71045; 74181; 76705; 80053; 80307; 81001; 84484; 85025; 85027; 88304; 93005; 94640; 96365; 96366; 96367; 96368; 96372; 96375; 96376; 99285; G0378; J0690; J1100; J1170; J1644; J1815; J1885; J1956; J2270; J2370; J2704; J2710; J3480; J3490; J7030; J7070; J7120; 80320; Q0162; G0480